=== PATIENT | male | born 1950 | race Caucasian/White ===

== ENCOUNTER → 2019-11-28 09:09 | Outpatient (CLI) | payer MEDICARE, OTHER, SELFPAY ==
--- NOTE | ~2019-11-28 | MR_ITS ---
EXAMINATION: MR lumbar spine wo [facility] EXAM DATE: 11/28/2019 09:45 INDICATION: Low back pain for several months. TECHNIQUE: Multi-sequential, multiplanar MR images of the lumbar spine were obtained without contrast . Sagittal T1, T2, T2 fat saturation images. Axial T2 weighted images. There is no prior study for comparison. FINDINGS: Mild to moderate lumbar levoscoliosis. There is 5 mm retrolisthesis L1 on L2, 4 mm retrolis thesis L2 on L3 and 3 mm retrolisthesis L3 on L4. There is moderate loss of the L1-2 and L2-3 disc he ights. Mild disc disease at L3-4 and L4-5. There are scattered focal signal abnormalities consistent with hemangiomata, otherwise without focal suspicious marrow signal abnormalities. Paraspinal soft ti ssue is unremarkable. Surgical changes from prior laminectomies L1-L4. Level by level evaluation: T12-L1: There is a mild to moderate diffuse disc bulge. Facet arthropathy: Mild. Neural foraminal stenosis: Mild left. Central canal stenosis: Mild. L1-L2: There is a moderate diffuse disc bulge. Facet arthropathy: Moderate. Neural foraminal stenosis: Moderate bilateral. Central canal stenosis: Mild to moderate. L2-L3: There is a large diffuse disc bulge. Facet arthropathy: Moderate. Neural foraminal stenosis: Moderate to severe right, moderate left. Central canal stenosis: Mild to moderate. L3-L4: There is a moderate diffuse disc bulge. Facet arthropathy: Moderate to severe. Neural foraminal stenosis: Moderate to severe left, moderate right. Central canal stenosis: Moderate to severe. L4-L5: There is a moderate diffuse disc bulge. Facet arthropathy: Moderate to severe. Neural foraminal stenosis: Moderate to severe left, moderate right. Central canal stenosis: Moderate to severe. L5-S1: There is a mild diffuse disc bulge. Facet arthropathy: Mild to moderate. Neural foraminal stenosis: Mild bilateral. Central canal stenosis: Mild. IMPRESSION: 1. L1-L4 laminectomies. 2. Moderate to severe central canal stenosis L3-4 and L4-5. 3. Upper lumbar retrolistheses. Reviewed, dictated and finalized at location A.
== END ==
PROVIDERS: PCP Family Medicine; Visit Provider Physician Assistant
DX: M54.5 Low back pain (principal); Z98.1 Arthrodesis status; M48.061 Spinal stenosis, lumbar region without neurogenic claudication; M43.16 Spondylolisthesis, lumbar region
CPT/HCPCS: 72148

== ENCOUNTER → 2019-12-18 08:42 | Outpatient (CLI) | payer MEDICARE, OTHER, SELFPAY ==
--- NOTE | ~2019-12-18 | CT_ITS ---
EXAMINATION: CT lumbar spine wo [facility] EXAM DATE: 12/18/2019 09:01 INDICATION: Low back pain. TECHNIQUE: Spiral CT of the lumbar spine was performed without contrast. Axial, coronal and sagittal images were reviewed. The dose-length product (DLP) for this examination was 896.23 mGy-cm. The e xposure was tailored according to patient size (auto mA exposure control), and iterative reconstructi on (ASIR) was used as additional dose reduction technique. Correlation is made to MR lumbar spine 10/30. FINDINGS: No endplate erosive change. Mild to moderate lumbar levoscoliosis. There is 4 mm retrolist hesis L1 on L2, 3 mm retrolisthesis L2 on L3 and 3 mm retrolisthesis L3 on L4. There is moderate to s evere loss of L2-3 disc height, moderate at L1-2. Mild lower lumbar disc disease. There are no osteob lastic or osteolytic lesions identified. . Paraspinal soft tissue is unremarkable. Surgical changes from prior laminectomies L1-L4. No sacral insufficiency fracture. Level by level evaluation: T12-L1: There is a mild to moderate diffuse disc bulge. Facet arthropathy: Mild. Neural foraminal stenosis: Mild left. Central canal stenosis: Mild. L1-L2: There is a moderate diffuse disc bulge. Facet arthropathy: Moderate. Neural foraminal stenosis: Moderate bilateral. Central canal stenosis: Mild to moderate. L2-L3: There is a large diffuse disc bulge. Facet arthropathy: Moderate. Neural foraminal stenosis: Moderate to severe right, moderate left. Central canal stenosis: Mild to moderate. L3-L4: There is a moderate to large diffuse disc bulge. Facet arthropathy: Severe left, moderate to severe right. Neural foraminal stenosis: Moderate to severe bilateral. Central canal stenosis: Moderate to severe. Some midline posterior decompression L4-L5: There is a moderate diffuse disc bulge. Facet arthropathy: Moderate to severe. Neural foraminal stenosis: Moderate to severe bilateral. Central canal stenosis: Moderate to severe. The midline posterior decompression. L5-S1: There is a mild diffuse disc bulge. Facet arthropathy: Moderate bilateral. Neural foraminal stenosis: Mild to moderate bilateral. Central canal stenosis: Mild to moderate. IMPRESSION: 1. L1-L4 laminectomies. 2. Moderate to severe central canal stenosis L3-4 and L4-5. 3. Mild to moderate levoscoliosis. Reviewed, dictated and finalized at location B.
== END ==
PROVIDERS: Visit Provider Orthopaedic Surgery
DX: M54.5 Low back pain (principal)
CPT/HCPCS: 72131

== ENCOUNTER 2020-07-09 07:59 | Outpatient (CLI) | payer MEDICARE, SELFPAY | END 2020-07-09 08:00 | disposition home or self-care (01) | LOC: ANHCOVIDVC 07:59 | PROVIDERS: PCP Family Medicine | DX: Z23 Encounter for immunization (principal) | CPT/HCPCS: 0001A; 91300 ==

== ENCOUNTER 2020-07-30 08:03 | Outpatient (CLI) | payer MEDICARE, SELFPAY | END 2020-07-30 08:04 | disposition home or self-care (01) | LOC: ANHCOVIDVC 08:03 | PROVIDERS: PCP Family Medicine | DX: Z23 Encounter for immunization (principal) | CPT/HCPCS: 0002A; 91300 ==

== ENCOUNTER → 2020-12-28 09:19 | Outpatient (CLI) | payer MEDICARE, SELFPAY ==
--- NOTE | ~2020-12-28 | MR_ITS ---
EXAMINATION: MR lumbar spine wo [facility] EXAM DATE: 12/28/2020 10:09 INDICATION: Lumbago lumbago , low back pain. TECHNIQUE: Multi-sequential, multiplanar MR images of the lumbar spine were obtained without contrast . Sagittal T1, T2, T2 fat saturation images. Axial T2 weighted images. Comparison is made to prior examination from 11/28/2019. FINDINGS: Mild to moderate lumbar levoscoliosis. There is 6 mm retrolisthesis L1 on L2, 4 mm retrolis thesis L2 on L3 and 3 mm retrolisthesis L3 on L4. There is moderate loss of the L1-2 and L2-3 disc he ights. Mild disc disease at L3-4 and L4-5. There are scattered focal signal abnormalities consistent with hemangiomata, otherwise without focal suspicious marrow signal abnormalities. Paraspinal soft ti ssue is unremarkable. Surgical changes from prior laminectomies L1-L4. Level by level evaluation: T12-L1: There is a mild to moderate diffuse disc bulge. Facet arthropathy: Mild. Neural foraminal stenosis: Mild left. Central canal stenosis: Mild. L1-L2: There is a moderate to large diffuse disc bulge. Facet arthropathy: Moderate. Neural foraminal stenosis: Moderate right, mild to moderate left. Central canal stenosis: Mild to moderate. L2-L3: There is a large diffuse disc bulge. Facet arthropathy: Moderate. Neural foraminal stenosis: Moderate to severe right, moderate left. Central canal stenosis: Mild to moderate. L3-L4: There is a moderate diffuse disc bulge. Facet arthropathy: Severe, ligamentum flavum hypertrophy on the left and synovial cyst projecting int ernally on the right. Neural foraminal stenosis: Moderate to severe bilateral. Central canal stenosis: Moderate. L4-L5: There is a moderate diffuse disc bulge. Facet arthropathy: Moderate to severe. Neural foraminal stenosis: Severe left, moderate to severe right. Central canal stenosis: Moderate to severe. L5-S1: There is a mild diffuse disc bulge. Facet arthropathy: Mild to moderate. Neural foraminal stenosis: Mild to moderate bilateral. Central canal stenosis: Mild. Difficult to appreciate significant interval change compared to one year ago. IMPRESSION: 1. Mild to moderate lumbar levoscoliosis. 2. Moderate to severe spondylosis as detailed above. Reviewed, dictated and finalized at location B.
== END ==
PROVIDERS: PCP Family Medicine; Visit Provider Nurse Practitioner Family
DX: M47.817 Spondylosis without myelopathy or radiculopathy, lumbosacral region (principal); M48.07 Spinal stenosis, lumbosacral region
CPT/HCPCS: 72148

== ENCOUNTER → 2021-04-26 09:09 | Outpatient (CLI) | payer MEDICARE, SELFPAY ==
--- NOTE | ~2021-04-26 | MR_ITS ---
EXAMINATION: MR thoracic spine wo con EXAM DATE: 04/26/2021 10:02 INDICATION: Back pain, thoracic back pain. TECHNIQUE: Multi-sequential, multiplanar MR images of the thoracic spine were obtained without contra st. Sagittal T1, T2, T2 fat saturation, axial T2 weighted images reviewed. There is no prior study for comparison. FINDINGS: There is mild lower thoracic disc disease with mild disc bulges, mild central canal stenosi s at T9-10 and T11-12. There is thoracic facet arthropathy, mild to moderate at the upper thoracic le vels, mild at the midthoracic levels and moderate at the lower thoracic levels from T8/9 down. There are several small vertebral body hemangiomata. Probable T9 small atypical hemangioma. Paraspinal soft tissue is unremarkable. The vertebral bodies are aligned in the AP dimension. T9-10 has moderate rig ht neural foraminal stenosis and mild to moderate left neural foraminal stenosis. Mild bilateral neur al foraminal stenosis at T10-11 and mild to moderate at T11-12. The spinal cord signal intensity and intrinsic morphology is normal. Thoracic aortic tortuosity. IMPRESSION: Mild to moderate thoracic spondylosis. Reviewed, dictated and finalized at location A. [employer]
== END ==
PROVIDERS: Visit Provider Nurse Practitioner Family
DX: M47.896 Other spondylosis, lumbar region (principal)
CPT/HCPCS: 72146

== ENCOUNTER 2021-07-28 08:33 | Outpatient (CLI) | payer MEDICARE, SELFPAY ==
--- NOTE | 2021-07-28 | ECG_ITS ---
Measurements Intervals [place] Rate: 70 P: 76 LA: 160 QRS: -44 QRSD: 114 T: 0 QT: 377 QTc: 407 Interpretive Statements SINUS RHYTHM WITH SINUS ARRHYTHMIA LEFT AXIS DEVIATION [QRS AXIS < -30] INCOMPLETE RIGHT BUNDLE BRANCH BLOCK [90+ ms QRS DURATION, TERMINAL R IN V1/V2, 40+ ms S IN I/aVL/V4/V5/V6] BORDERLINE ECG NO PREVIOUS ECG AVAILABLE FOR COMPARISON Electronically Signed On 07-28-2021 15:42:19 CDT by Amilcar Stevens M.D.
[2021-07-28 08:58] LABS: Basophils Percent Auto 0.5 % (0.2-1.2); Eosinophils Absolute Auto 0.1 K/mm3 (0-0.3); Eosinophils Percent Auto 1.1 % (0-4.4); Hematocrit 40.9 % (42.0-52.0); Hemoglobin 13.8 g/dL (14.0-18.0); Immature Granulocyte Absolute 0.01 K/mm3 (0.00-0.031); Immature Granulocyte Percent A 0.2 % (0-0.5); Lymphocytes Absolute Auto 3.02 K/mm3 (0.9-3.2); Lymphocytes Percent Auto 46.9 % (18.3-44.2); Mean Corpuscular HGB Conc 33.7 g/dl (32-36); Mean Corpuscular Hemoglobin 31.4 pg (26-34); Mean Corpuscular Volume 93.2 fl (80-100); Mean Platelet Volume 9.6 fl (7.4-10.4); Monocytes Absolute Auto 0.8 K/mm3 (0.1-0.6); Monocytes Percent Auto 12.1 % (2.6-8.5); Neutrophils Absolute Auto 2.5 K/mm3 (1.3-6.7); Neutrophils Percent Auto 39.2 % (45.5-73.1); Platelet Count Result 215 k/mm3 (150-375); Red Blood Count 4.39 M/mm3 (4.6-6.20); Red Cell Distribution Width 12.7 % (11.5-14.5); White Blood Count 6.4 K/mm3 (4.5-10.0)
[2021-07-28 09:10] LABS: Anion Gap 8 mmol/L (8-16); Blood Urea Nitrogen 20 mg/dL (9-20); CRP < 0.5 mg/dL (<1.0); Calcium 9.3 mg/dL (8.4-10.2); Carbon Dioxide 25 mmol/L (22-30); Chloride 105 mmol/L (98-107); Estimated Glomerular Filt Rate > 60; Glucose 105 mg/dL (65-110); Potassium 4.4 mmol/L (3.4-5.0); Sodium 138 mmol/L (137-145)
[2021-07-28 09:49] LABS: Appearance Urine Clear (Clear); Bilirubin Urine Negative (Negative); Blood Urine Negative (Negative); Glucose Urine UA Negative (Negative); Ketones Urine Negative (Negative); Leukocyte Esterase Ur Negative LEU/UL (Negative); Nitrate Urine Negative (Negative); Protein Urine Negative (Negative); Urobilinogen Urine 0.2 mg/dL (<2.0)
[2021-07-28 09:54] LABS: Add Urine Microscopic? NO; Color Urine Light Yellow (Yellow)
[2021-07-28 09:58] LABS: Erythrocyte Sedimentation Rate 48 mm/hr (0-20)
== END 2021-07-28 08:34 | disposition home or self-care (01) ==
PROVIDERS: Visit Provider Nurse Practitioner Family
DX: Z01.810 Encounter for preprocedural cardiovascular examination (principal); I45.10 Unspecified right bundle-branch block
CPT/HCPCS: 36415; 80048; 81003; 85025; 85652; 86140; 93005

== ENCOUNTER 2022-01-05 10:06 | Outpatient (CLI) | payer MEDICARE, SELFPAY ==
--- NOTE | ~2022-01-05 | US_ITS ---
EXAMINATION: US soft tissue UE LT DATE: 01/05/2022 11:01 INDICATION: Spontaneously draining cutaneous abscess of the proximal left forearm TECHNIQUE: Multiple grayscale and Doppler ultrasound images of the region of concern at the posterola teral proximal left forearm were obtained. COMPARISON: None FINDINGS: There is focal mild subcutaneous edema surrounding an approximately 2 cm diameter and up to 4 mm thic k region of decreased echogenicity in the subcutaneous fat which could represent either phlegmonous c hange or a decompressed abscess cavity with small hypoechoic tract extending to the skin surface. No discrete loculated fluid collection to suggest a residual drainable abscess. No evident transgression of the superficial muscular fascia with normal appearance to the underlying musculature. IMPRESSION: 1. Small region of phlegmonous change versus a decompressed abscess cavity at the region of concern a s detailed above. No residual drainable abscess or involvement of the underlying musculature. Reviewed, dictated and finalized at location A. IMPRESSION: 1. Small region of phlegmonous change versus a decompressed abscess cavity at t he region of concern as detailed above. No residual drainable abscess or involv ement of the underlying musculature.
== END 2022-01-05 10:07 | disposition home or self-care (01) ==
PROVIDERS: PCP Family Medicine; Visit Provider Physician Assistant
DX: L02.414 Cutaneous abscess of left upper limb (principal); L72.9 Follicular cyst of the skin and subcutaneous tissue, unspecified
CPT/HCPCS: 76882

== ENCOUNTER 2022-02-01 12:08 | Day surgery (SDC) | payer MEDICARE, SELFPAY ==
[2022-01-16 14:38] VITALS: BMI 27.4
--- NOTE | 2022-01-31 18:00 | PM.HPGS ---
History of Present Illness History of Present Illness Consent: Risks, benefits, and alternatives have been discussed and questions answered. Patient agrees to proceed with procedure. Chief complaint: Positive Cologuard Narrative: Jarad Herring is a 71 year old male referred for colon cancer screening. He had performed a Cologuard test which was positive Review of Systems Review of Systems: All systems reviewed & are unremarkable except as noted in HPI and below PMFSH Past Medical History Medical History Chronic low back pain COPD (chronic obstructive pulmonary disease) HLD (hyperlipidemia) HTN (hypertension) Surgical History Surgical History S/P laminectomy Family History Family History Father Family history of pancreatic cancer Social History Social History Smoking packs per day: 3 Smoking cigarettes per day: 60.0 Years smoked: 40 Smoking pack-years: 120.00 Smoking status: Former smoker Tobacco type: cigarettes Second hand tobacco smoke exposure: Yes Smoking end date: 04/30/04 Alcohol intake: never Substance use: never Substance use type: does not use Living arrangements: with family Gender identity (if verbalized by the patient): Male Sexual Orientation (if Verbalized by the Patient): Straight or Heterosexual Spiritual care concerns: No Meds Home Medications and Allergies Home Medications Medication Instructions Recorded Confirmed Type hydrocodone 5 mg-acetaminophen 325 1 tablet PO Q6H PRN pain #40 tabs 12/02/20 02/01/22 Rx mg tablet albuterol sulfate 90 mcg/actuation 1 - 2 inh inhalation Q4-6H PRN 06/09/21 01/16/22 Rx aerosol inhaler (Ventolin HFA) shortness of breath or wheezing #8.5 grams amlodipine 5 mg tablet (Norvasc) 5 mg PO DAILY #90 tabs 09/20/21 02/01/22 Rx atorvastatin 10 mg tablet 10 mg PO DAILY #30 tabs 09/20/21 02/01/22 Rx sodium sul 1.479 gram-potas ch See Rx Instructions PO PER PKG DIR 10/17/21 02/01/22 Rx 0.188 gram-magnes sul 0.225 gram #24 tabs tablet (Sutab) budesonide-formoterol HFA 160 See Rx Instructions .Route 01/11/22 02/01/22 Rx mcg-4.5 mcg/actuation aerosol .COMPLEX #10.2 grams inhaler diclofenac sodium 75 mg 75 mg PO BID #180 tabs 01/16/22 02/01/22 Rx tablet,delayed release multivitamin with minerals-folic 1 tablet PO DAILY 01/16/22 02/01/22 History acid 0.4 mg tablet Allergies Allergy/AdvReac Type Severity Reaction Status Date / Time Penicillins Allergy Unknown Rash Verified 02/01/22 12:56 Exam Const: General: alert Orientation/consciousness: patient oriented x3 Resp: Auscultation: clear to auscultation bilaterally Cardio: Rhythm: regular rhythm GI: GI Palp: Yes Soft to palpation and No Tenderness to palpation present (GI) Neuro: General: patient oriented x3 Assessment and Plan Assessment and plan (1) Colon cancer screening: Code(s): Z12.11 - Encounter for screening for malignant neoplasm of colon Status: Acute Assessment and Plan: Colonoscopy with possible biopsy or polypectomy or cautery or injection of substances.
[2022-02-01 12:45] VITALS: BP 139/96; PULSE 80; RESP 16; TEMP 36.7; O2SAT 98
[2022-02-01] MEDS: LACTATED RINGERS 1,000 ML 150 ML IV CONT (13:05)
--- NOTE | 2022-02-01 13:23 | WPDANESEPPF ---
Anes - Initial Pre Proc Eval Procedure: Operation Date: 02/01/22 13:45 Proposed Procedures p Diagnostic Colonoscopy - Dmitriy Tovar MD Date/Time: 02/01/22 13:23 Surgeon: Dmitriy Tovar MD Pre Op Diagnosis: Positive Cologuard Patient Data Age: 71 Gender: M Height: 1.73 m Weight: 82 kg Last Vital Signs Temp 36.7 C 02/01/22 12:45 Pulse 80 02/01/22 12:45 Resp 16 02/01/22 12:45 BP 139/96 H 02/01/22 12:45 Pulse Ox 98 02/01/22 12:45 O2 Del Method Room Air 02/01/22 12:45 Allergies Allergy/AdvReac Type Severity Reaction Status Date / Time Penicillins Allergy Unknown Rash Verified 02/01/22 12:56 Home Medications Medication Instructions Recorded Confirmed Type hydrocodone 5 mg-acetaminophen 325 1 tablet PO Q6H PRN pain #40 tabs 12/02/20 02/01/22 Rx mg tablet albuterol sulfate 90 mcg/actuation 1 - 2 inh inhalation Q4-6H PRN 06/09/21 01/16/22 Rx aerosol inhaler (Ventolin HFA) shortness of breath or wheezing #8.5 grams amlodipine 5 mg tablet (Norvasc) 5 mg PO DAILY #90 tabs 09/20/21 02/01/22 Rx atorvastatin 10 mg tablet 10 mg PO DAILY #30 tabs 09/20/21 02/01/22 Rx sodium sul 1.479 gram-potas ch See Rx Instructions PO PER PKG DIR 10/17/21 02/01/22 Rx 0.188 gram-magnes sul 0.225 gram #24 tabs tablet (Sutab) budesonide-formoterol HFA 160 See Rx Instructions .Route 01/11/22 02/01/22 Rx mcg-4.5 mcg/actuation aerosol .COMPLEX #10.2 grams inhaler diclofenac sodium 75 mg 75 mg PO BID #180 tabs 01/16/22 02/01/22 Rx tablet,delayed release multivitamin with minerals-folic 1 tablet PO DAILY 01/16/22 02/01/22 History acid 0.4 mg tablet Patient hx anesthesia problems: none Family hx anesthesia problems: none Results Review: All pre-operative results and documents have been reviewed as part of the pre-operative evaluation. [facility] Past Medical History Medical History Chronic low back pain COPD (chronic obstructive pulmonary disease) HLD (hyperlipidemia) HTN (hypertension) Surgical History Surgical History S/P laminectomy Family History Family History Father Family history of pancreatic cancer Social History Social History Smoking packs per day: 3 Smoking cigarettes per day: 60.0 Years smoked: 40 Smoking pack-years: 120.00 Smoking status: Former smoker Tobacco type: cigarettes Second hand tobacco smoke exposure: Yes Smoking end date: 04/30/04 Alcohol intake: never Substance use: never Substance use type: does not use Living arrangements: with family Gender identity (if verbalized by the patient): Male Sexual Orientation (if Verbalized by the Patient): Straight or Heterosexual Spiritual care concerns: No Anes - Eval Final PreProcedure Day of Procedure 02/01/22 13:23 Patient weight: overweight Heart: regular rate and rhythm Lungs: decreased breath sounds Airway: Mallampati scale class II Neurological: alert and oriented Last oral intake: >/= 8 hours ASA classification: III Emergent: no Anesthetic plan: proceed Anesthesia type and monitoring: general GIVS and standard monitoring Results Review: All pre-operative results and documents have been reviewed as part of the pre-operative evaluation. Informed Consent: The patient's anesthetic plan and its attendant risks and benefits were discussed with the patient/family/POA. Questions were solicited and answers provided to the satisfaction of the patient/family/POA.
[2022-02-01 14:00] VITALS: BP 91/72; PULSE 71; RESP 15; O2SAT 95
[2022-02-01 14:10] VITALS: BP 126/68; PULSE 70; RESP 15; O2SAT 98
[2022-02-01 14:20] VITALS: BP 126/76; PULSE 68; RESP 15; O2SAT 98
--- NOTE | 2022-02-01 14:20 | WPDANESPN ---
Anes - Prog Note Post-Op Date/Time: 02/01/22 14:20 Cardiovascular status: normal Respiratory status: normal Airway patency: baseline Mental status: baseline Post-Op hydration status: normal Vital Signs: Last Vital Signs Temp 36.7 C 02/01/22 12:45 Pulse 70 02/01/22 14:10 Resp 15 02/01/22 14:10 BP 126/68 02/01/22 14:10 Pulse Ox 98 02/01/22 14:10 O2 Del Method Room Air 02/01/22 14:10 Pain Score (VAS): 0 I/O: Intake & Output 01/31/22 02/01/22 02/01/22 23:59 07:59 15:59 Intake Total 600 Balance 600 Patient Feedback: Patient satisfied with anesthetic care.
== END 2022-02-01 14:25 | disposition home or self-care (01) ==
PROVIDERS: PCP Family Medicine; Visit Provider Internal Medicine Gastroenterology
PROC: 0DJD8ZZ Inspection of Lower Intestinal Tract, Via Natural or Artificial Opening Endoscopic (ICD-10-PCS; CPT 45378; principal; 2022-02-01 13:45)
DX: Z12.11 Encounter for screening for malignant neoplasm of colon (principal)
CPT/HCPCS: 45378

== ENCOUNTER 2022-04-15 12:23 | Outpatient (NON) | payer MEDICARE, SELFPAY ==
[2022-04-14 12:44] LABS: Appearance Synovial Fluid Cloudy (Clear); Color Synovial Fluid Yellow (Colorless); Source Synovial Fluid Synovial fluid
[2022-04-14 12:49] LABS: Lymphocytes Synovial Fluid 3 %; Neutrophils Synovial Fluid 97 % (0-25); Nucleated Cell Synovial Fluid 8734 /uL (0-200); RBC Synovial Fluid 7905 /uL (0-0)
== END 2022-04-15 12:24 | disposition home or self-care (01) ==
LOC: ANHLAB 12:28
PROVIDERS: PCP Family Medicine; Visit Provider Orthopaedic Surgery
DX: M71.122 Other infective bursitis, left elbow (principal)
CPT/HCPCS: 87070; 87075; 87147; 87181; 87186; 87205; 89051

== ENCOUNTER 2022-09-14 07:53 | Outpatient (CLI) | payer MEDICARE, SELFPAY ==
--- NOTE | 2022-09-14 08:08 | ECG_ITS ---
Measurements Intervals [place] Rate: 79 P: 87 IN: 155 QRS: -36 QRSD: 113 T: 15 QT: 353 QTc: 407 Interpretive Statements SINUS RHYTHM LEFT AXIS DEVIATION INCOMPLETE RIGHT BUNDLE BRANCH BLOCK BASELINE ARTIFACT- I, II, III, AVR, AVL, AVF, V1-V3 BORDERLINE ECG COMPARED TO ECG 07/28/2021 09:24:02 NO SIGNIFICANT CHANGES Electronically Signed On 09-14-2022 9:04:13 CDT by Julio Herrera D.O.
== END 2022-09-14 07:54 | disposition home or self-care (01) ==
LOC: ANHSURGERY 07:57
PROVIDERS: PCP Family Medicine; Visit Provider Orthopaedic Surgery
DX: I10 Essential (primary) hypertension (principal); Z01.818 Encounter for other preprocedural examination; I45.10 Unspecified right bundle-branch block
CPT/HCPCS: 93005

== ENCOUNTER 2022-09-19 01:28 | Day surgery (SDC) | payer MEDICARE, SELFPAY ==
[2022-09-12 08:28] VITALS: BMI 29.8
--- NOTE | 2022-09-12 08:46 | PC.NURSE ---
Report to the Outpatient Waiting Room, entrance under the green pavilion located off [facility], at time __8:30AM on date _09/19/22 . Planned Procedure Time: __10:30AM . Time changes happen often and if your time is changed the preop area will call you the afternoon before. - You and your visitor will be asked to self-screen and do not enter if you have any COVID symptoms. - A mask is optional within the hospital at this time. Patients may have clear liquids (water, carbonated beverages, clear teas, apple juice) until 3 hours prior to surgery with a maximum of 20 ounces. - No food from midnight until time of surgery Take the following medications with a SIP of water the morning of surgery: __SYMBICORT INHALER, XTAMPZA, ALBUTEROL INHALER NEEDED_ DO NOT STOP ANY OF YOUR OTHER PRESCRIPTION MEDICATIONS PRIOR TO SURGERY ?EXCEPT THE FOLLOWING Medications to discontinue per physician ___HOLD ALL VITAMINS/SUPPLEMENTS 3 DAYS PRE-OP Date to take last dose 09/15/22 Please no make-up, nail persian, hairspray, perfume, deodorant, or body powder the day of surgery. No jewelry (including any body piercings) or valuables the day of surgery, leave them at home. Please take a shower or bath the night before, or the morning of, surgery with an antibacterial soap. Wear comfortable, loose fitting clothing. Children are encouraged to wear pajamas. - Jewelry must be removed prior to entering the operating room. Rings and piercings that are not removed may be cut off. - The hospital will not accept responsibility for valuables. - Please leave all valuables, including medications, at home the day of surgery. If you are going home after surgery, a licensed four horse hitch driver must drive you home. - NO public transportation without another adult if you receive anesthesia. - We recommend that an adult stay with you for 24 hours following discharge. - We also recommend that you do not drive, make important decision, drink alcoholic beverages, or take any drugs that were not prescribed by your health care provider for at least 24 hours after your discharge time. Follow any additional instructions given to you from your surgeon. If you or anyone in your household have experienced Covid symptoms in the past week, please notify your surgeon or the nurse liaison at the phone number below for possible testing. Telephone instructions given to _PATIENT'S , GABY,__and asked if any additional questions and then verbalized understanding. Patient advised to call surgeon office or pre surgery nurse liaison [phone] if any additional questions.
[2022-09-19] VITALS (8 sets, daily range): BP systolic 124–136; BP diastolic 70–86; PULSE 82–95; RESP 13–19; TEMP 36.6–36.8; O2SAT 93–100
[2022-09-19] MEDS: ACETAMINOPHEN 500 MG TABLET 1000 MG PO (08:34)
--- NOTE | 2022-09-19 08:49 | WPDANESEPPF ---
Anes - Initial Pre Proc Eval Procedure: Operation Date: 09/19/22 10:30 Proposed Procedures p Left Elbow Olecranon Bursectomy - Eric Otto MD Date/Time: 09/19/22 08:49 Surgeon: Eric Otto MD Pre Op Diagnosis: Lt Elbow Olecranon Bursitis Patient Data Age: 72 Gender: M Height: 1.73 m Weight: 85.2 kg Allergies Allergy/AdvReac Type Severity Reaction Status Date / Time Penicillins Allergy Unknown Rash Verified 09/19/22 08:29 Home Medications Medication Instructions Recorded Confirmed Type albuterol sulfate 90 mcg/actuation 1 - 2 inh inhalation Q4-6H PRN 06/09/21 09/12/22 Rx aerosol inhaler (Ventolin HFA) shortness of breath or wheezing #8.5 grams multivitamin with minerals-folic 1 tablet PO DAILY 01/16/22 09/12/22 History acid 0.4 mg tablet budesonide-formoterol HFA 160 See Rx Instructions .Route 03/13/22 09/12/22 Rx mcg-4.5 mcg/actuation aerosol .COMPLEX #30.6 grams inhaler lubiprostone 24 mcg capsule 24 mcg PO BID 03/14/22 09/12/22 History atorvastatin 10 mg tablet 10 mg PO DAILY #30 tabs 03/27/22 09/12/22 Rx diclofenac sodium 75 mg 75 mg PO BID #180 tabs 07/19/22 09/12/22 Rx tablet,delayed release oxycodone myristate 13.5 mg 13.5 mg PO BID 07/26/22 09/12/22 History capsule sprinkle extend release 12hr(DON'T CRUSH) (Xtampza ER) oxycodone 5 mg tablet 5 mg PO Q8H PRN Pain 09/06/22 09/12/22 History amlodipine 5 mg tablet (Norvasc) 5 mg PO HS 09/12/22 09/12/22 History Patient hx anesthesia problems: none Family hx anesthesia problems: none Results Review: All pre-operative results and documents have been reviewed as part of the pre-operative evaluation. [facility] Past Medical History Medical History (Updated 09/19/22 @ 08:50 by Migue Benedict DO) Cellulitis of right elbow Chronic low back pain Chronic, continuous use of opioids oxy 5 mg for 10 years COPD (chronic obstructive pulmonary disease) HLD (hyperlipidemia) HTN (hypertension) Spinal cord stimulator status Surgical History Surgical History H/O elbow surgery 2012 Left elbow 2016 Right elbow H/O left knee surgery 2000 & 2007 History of left knee replacement 2015 History of tooth extraction S/P laminectomy 2018 & 2020 Family History Family History Father Family history of pancreatic cancer Social History Social History Smoking packs per day: 2 Smoking cigarettes per day: 40.0 Years smoked: 30 Smoking pack-years: 60.00 Smoking status: Former smoker Tobacco type: cigarettes Second hand tobacco smoke exposure: Yes Smoking end date: 10/29/03 Alcohol intake: never Substance use: never Substance use type: does not use Lack of Transportation: No Lack of Food: Never True Current Housing: I Have Housing Concerned About Future Housing: No Difficulty Paying Gas/Electric Bills: No Difficulty Paying for Meds: No Currently Unemployed: No Education: Trade/Vocational Certificate Difficulty w/ Childcare or Family Care: No Living arrangements: with family Additional living arrangements comments: Occupation/Education: retired Gender identity (if verbalized by the patient): Male Sexual Orientation (if Verbalized by the Patient): Straight or Heterosexual Spiritual care concerns: No Anes - Eval Final PreProcedure Day of Procedure 09/19/22 08:49 Patient weight: overweight Heart: regular rate and rhythm Lungs: clear to auscultation Airway: Mallampati scale class III Neurological: alert and oriented Last oral intake: >/= 8 hours ASA classification: III Emergent: no Anesthetic plan: proceed Anesthesia type and monitoring: general LMA and standard monitoring Results Review: All pre-operative results and documents have been reviewed as part of the pre-operative evaluation
[2022-09-19] MEDS: LACTATED RINGERS 1,000 ML 30 ML IV CONT (08:52)
[2022-09-19] MEDS: KETOROLAC 15 MG/ML VIAL (*BKC) IV PUSH (09:29)
--- NOTE | 2022-09-19 09:41 | WPDHPUPDATE1 ---
History and Physical Update Update Date/Time: 09/19/22 09:41 History and Physical has been reviewed, including an updated exam of the patient. There are NO changes in the patient's condition. Risks, benefits, and alternatives have been discussed and questions answered. Patient agrees to proceed with procedure.
[2022-09-19] MEDS: ceFAZolin 2 GM/D5W 50 ML 2 GM/50 ML BAG IVPB (10:21)
[2022-09-19] MEDS: BUPivacaine HCL 0.5% 10 ML AMP 30 ML INFILTRATE (10:46)
--- NOTE | 2022-09-19 11:54 | W.PM.PROC2 ---
Procedure Note - Detailed Date of Procedure 09/19/22 Pre-op Diagnosis Lt Elbow Olecranon Bursitis Post-op Diagnosis Same Procedure Performed Excision left olecranon bursa Surgeon Eric Otto MD Anesthesia General Description of Procedure Preoperative antibiotics given. The arm was prepped and draped in the usual sterile fashion with a well-padded tourniquet. A longitudinal incision was created slightly ulnar over the elbow in order to include the small sinus tract. Bursa sac itself was quite thickened and large with extensive scar tissue. Prior surgical dissection appeared evident. Care was taken to protect the skin. Tourniquet was released and meticulous hemostasis obtained. No gross purulence noted. The wound was closed with mattress nylon suture. Not too tight to allow for some drainage. Bulky dressing with Xeroform was applied. Posterior splint at 90?. Patient extubated and brought to the recovery room in stable condition. Estimated Blood Loss 10 Drains No Packing No Pathology None sent Complications No immediate complications Condition Stable Disposition PACU [facility] Billing Surgery - Charge Forward: Surgery Billing
== END 2022-09-19 13:22 | disposition home or self-care (01) ==
PROVIDERS: PCP Family Medicine; Visit Provider Orthopaedic Surgery
PROC: (CPT 24110; principal; 2022-09-19 10:30)
DX: M70.22 Olecranon bursitis, left elbow (principal); E78.5 Hyperlipidemia, unspecified; I10 Essential (primary) hypertension; J44.9 Chronic obstructive pulmonary disease, unspecified; Z87.891 Personal history of nicotine dependence
CPT/HCPCS: 24105; 93005; A9270; J0690; J1100; J1885; J2250; J2405; J2704; J3010; J7120

== ENCOUNTER → 2023-03-02 15:53 | Outpatient (CLI) | payer MEDICARE, SELFPAY ==
--- NOTE | ~2023-03-02 | XR_ITS ---
XR sacroiliac joints min 3V 03/02/2023 16:24 Indication: Low back pain. Spondylosis. Procedure: 3 views sacroiliac joints Comparison: 03/02/2023 Findings: There is bilateral symmetric degenerative changes of the sacroiliac joints. No fracture or traumatic malalignment. No erosive changes. No ankylosis. Sacral foramen are symmetric. Impression: 1: Mild symmetric degenerative changes of the sacroiliac joints. Reviewed, dictated and finalized at location A. Impression: 1: Mild symmetric degenerative changes of the sacroiliac joints.
--- NOTE | ~2023-03-02 | XR_ITS ---
XR hip BI wo pelvis 03/02/2023 16:24 Indication: Pelvic pain Procedure: 2 views each hip Comparison: No prior studies for comparison. Findings: There is moderate bilateral osteoarthritis of the hips. There is osteitis pubis. Sacral for amen are symmetric. No acute fracture or traumatic malalignment. Lower lumbar spondylosis partially v isualized. Impression: 1: Moderate osteoarthritis of the hips. Reviewed, dictated and finalized at location A. Impression: 1: Moderate osteoarthritis of the hips.
--- NOTE | ~2023-03-02 | XR_ITS ---
XR lumbar spine min 4V 03/02/2023 16:24 Indication: Low back pain. Spondylosis. Procedure: 5 views lumbar spine Comparison: 06/06/2012 Findings: Mild levoscoliosis. There is disc narrowing and endplate degenerative change at all lumbar levels. There is advanced multilevel facet hypertrophy. Pedicles intact. Spinal stimulator leads over lie the thoracic spine, incompletely visualized. No acute fracture or traumatic malalignment. Impression: 1: Progression of severe lumbar spondylosis with levoscoliosis. Reviewed, dictated and finalized at location A. Impression: 1: Progression of severe lumbar spondylosis with levoscoliosis.
== END ==
PROVIDERS: PCP Neurological Surgery; Visit Provider Neurological Surgery
DX: M47.816 Spondylosis without myelopathy or radiculopathy, lumbar region (principal)
CPT/HCPCS: 72110; 72202; 73521

== ENCOUNTER → 2023-04-06 09:37 | Outpatient (CLI) | payer MEDICARE, SELFPAY ==
--- NOTE | ~2023-04-06 | XR_ITS ---
EXAMINATION: XR lumbar spine min 4V DATE: 04/06/2023 10:47 INDICATION: Other specified postprocedural status. TECHNIQUE: 5 views of lumbar spine including standing and flexion and extension views were obtained. COMPARISON: Lumbar spine radiographs 03/02/2023, MRI 12/28/2020 FINDINGS: There is 24 degrees levoscoliosis of lumbar spine. S1 is a transitional segment. There is 3 mm retrolisthesis of L1 on L2, L2 on L3, and L3 on L4. There is mild chronic anterior wedging of L1 and L2 vertebral bodies. There is moderately decreased disc height at L1-L2 and severely decreased di sc height at L2-L3 and L3-L4. There is multilevel severe facet joint osteoarthritis. Epidural electro darryn are noted. IMPRESSION: 1. Severe lumbar spondylosis. 2. Lumbar levoscoliosis. Reviewed, dictated and finalized at location E. SH VISITOR
== END ==
PROVIDERS: PCP Neurological Surgery; Visit Provider Neurological Surgery
DX: Z98.890 Other specified postprocedural states (principal); M47.896 Other spondylosis, lumbar region
CPT/HCPCS: 72110

== ENCOUNTER 2023-10-02 07:52 | Outpatient (CLI) | payer MEDICARE, SELFPAY | END 2023-10-02 07:53 | disposition home or self-care (01) | LOC: ANHAUDASC 07:53 | PROVIDERS: PCP Family Medicine; Visit Provider Family Medicine | DX: H91.90 Unspecified hearing loss, unspecified ear (principal) | CPT/HCPCS: 92557; 92567 ==

== ENCOUNTER 2023-11-05 15:00 | Outpatient (RCR) | payer MEDICARE, SELFPAY | END 2024-01-21 23:59 | disposition home or self-care (01) | LOC: ANHAUDASC 15:00 | PROVIDERS: PCP Family Medicine; Visit Provider Family Medicine | DX: Z46.1 Encounter for fitting and adjustment of hearing aid (principal) | CPT/HCPCS: 92567 ==

== ENCOUNTER 2023-12-07 13:30 | Outpatient (NON) | payer MEDICARE, SELFPAY ==
[2023-12-07 14:30] LABS: Appearance Synovial Fluid Hazy (Clear); Color Synovial Fluid Yellow (Colorless); Source Synovial Fluid Synovial fluid
[2023-12-07 14:31] LABS: Lymphocytes Synovial Fluid 86 %; Monocytes Synovial Fluid 11 %; Neutrophils Synovial Fluid 3 % (0-25); Nucleated Cell Synovial Fluid 2061 /uL (0-200); RBC Synovial Fluid 3000 /uL (0-0)
== END 2023-12-07 13:31 | disposition home or self-care (01) ==
PROVIDERS: PCP Family Medicine; Visit Provider Orthopaedic Surgery
DX: M71.122 Other infective bursitis, left elbow (principal)
CPT/HCPCS: 87070; 87075; 87205; 89051

== ENCOUNTER 2024-01-12 15:08 | Emergency (ER) | payer MEDICARE, SELFPAY ==
[2024-01-12 15:19] VITALS: BP 116/88; PULSE 76; RESP 16; TEMP 36.7; O2SAT 100
--- NOTE | 2024-01-12 17:12 | ED.SKABFB ---
HPI - Skin/Abscess/Foreign Bdy General Chief complaint: Extremity Problem,Nontraumatic Stated complaint: SPOT ON L ELBOW Time Seen by Provider: 01/12/24 15:44 Source: patient, RN notes reviewed and old records reviewed Mode of arrival: ambulatory Limitations: no limitations History of Present Illness HPI narrative: Patient's history of chronic cellulitis of left elbow area and history of left olecranon bursitis. He was seen by his PCP yesterday and was placed on a course of Bactrim for cellulitis to the area. Yesterday he did not have an abscess or area that could be cultured. He has a follow-up appointment scheduled for 1 week and has also been referred to Dermatology. So far he has had 1 dose of Bactrim prior to coming in today. Patient states that since his visit with PCP yesterday he has developed a pustular area in the middle of the cellulitis. He is wondering if we could culture this area and send it to the lab. Related Data Home Medications Medication Instructions Recorded Confirmed multivitamin with minerals-folic 1 tablet PO DAILY 01/16/22 01/11/24 acid 0.4 mg tablet lubiprostone 24 mcg capsule 24 mcg PO BID 03/14/22 01/11/24 naloxone 4 mg/actuation nasal 1 spray intranasal Q2-3M PRN 03/01/23 01/11/24 spray (Narcan) buprenorphine HCl 300 mcg buccal 300 mcg buccal Q12H 11/30/23 01/11/24 film ([place]uca) Allergies Allergy/AdvReac Type Severity Reaction Status Date / Time Penicillins Allergy Unknown Rash Verified 01/11/24 09:24 Review of Systems Review of Systems: CONSTITUTIONAL: Denies body aches, fever, chills, or sweats. EYES: Denies visual changes, redness, or discharge. ENT: Denies rhinorrhea, congestion, sore throat, or otalgia. CARDIOVASCULAR: Denies chest pain, palpitations, or edema. RESPIRATORY: Denies cough or dyspnea. GASTROINTESTINAL: Denies abdominal pain, nausea, vomiting, or diarrhea. GENITOURINARY: Denies dysuria or hematuria. SKIN: + redness and pustule to left lateral forearm MUSCULOSKELETAL: Denies back pain, joint pain, or myalgia. NEUROLOGIC: Denies headache, numbness, tingling, or weakness. PSYCH: Denies depression or anxiety. PMFSH Past Medical History Medical History Cellulitis of right elbow Chronic low back pain Chronic, continuous use of opioids oxy 5 mg for 10 years COPD (chronic obstructive pulmonary disease) HLD (hyperlipidemia) HTN (hypertension) Spinal cord stimulator status Surgical History Surgical History H/O elbow surgery 2011 Left elbow 2016 Right elbow H/O left knee surgery 2000 & 2007 History of left knee replacement 2014 History of tooth extraction S/P laminectomy 2018 & 2020 Family History Family History Father Family history of pancreatic cancer Social History Social History Smoking packs per day: 2 Smoking cigarettes per day: 40.0 Years smoked: 30 Smoking pack-years: 60.00 Smoking status: Former smoker Tobacco type: cigarettes Second hand tobacco smoke exposure: Yes Smoking end date: 10/29/03 Alcohol intake: never Substance use: never Substance use type: does not use Do You Feel Safe in your Home?: Yes Lack of Transportation: No Lack of Food: Never True Current Housing: I Have Housing Concerned About Future Housing: No Difficulty Paying Gas/Electric Bills: No Difficulty Paying for Meds: No Currently Unemployed: No Education: Trade/Vocational Certificate Difficulty w/ Childcare or Family Care: No Living arrangements: with family Additional living arrangements comments: Occupation/Education: retired Gender identity (if verbalized by the patient): Male Sexual Orientation (if Verbalized by the Patient): Straight or Heterosexual Sp
== END 2024-01-12 16:03 | disposition home or self-care (01) ==
PROVIDERS: Emergency Provider Nurse Practitioner; PCP Family Medicine
DX: L02.414 Cutaneous abscess of left upper limb (principal); Z87.891 Personal history of nicotine dependence; J44.9 Chronic obstructive pulmonary disease, unspecified; E78.5 Hyperlipidemia, unspecified; I10 Essential (primary) hypertension; Z96.82 Presence of neurostimulator
CPT/HCPCS: 10060; 87070; 87075; 87081; 87181; 87205; 99213; G0463

== ENCOUNTER 2024-11-07 09:07 | Emergency (ER) | payer MEDICARE, SELFPAY ==
[2024-11-07] VITALS (11 sets, daily range): BP systolic 104–140; BP diastolic 56–86; PULSE 76–84; RESP 15–23; TEMP 36.6; O2SAT 95–97
--- NOTE | ~2024-11-07 | XR_ITS ---
EXAM/PROCEDURE: XR chest 1V portable - 11/07/2024 10:50 CDT HISTORY: 74 years old Male with intermittent dizzy TECHNIQUE: Two view(s) of the chest. COMPARISON: None available. FINDINGS: LUNGS/ PLEURA: No focal consolidation. No appreciable pneumothorax or large pleural effusion. HEART/ MEDIASTINUM: Heart appears normal in size. BONES: Degenerative changes. OTHER: Visualized upper abdomen is unremarkable. Partially visualized spinal stimulator leads and bat gregory. IMPRESSION: No acute process. Reviewed, dictated and finalized at location A. IMPRESSION: No acute process.
--- OUTSIDE RECORDS SUMMARY | 2024-11-07 09:09 | XMS_ITS | Continuity of Care Document ---
Author Organization [facility] Address [address] [place] [address] [facility] [address] [place] [address] Phone Care Team Providers Care Highballer Name Role Phone HaimWillian grant Unavailable Unavailable Procedures Procedure Date Eye Exam & Treatment Advance Directives Directive Yes / No Effective Date File Name No Information Encounters Encounter Description Practice Location Reason(s) For Visit Diagnoses Date Provider Providers Copied on Encounter [facility], [id number] [place] [address] [address], [place], [place], [id number], [place] tel:[phone] [facility] ([facility]3] No Information [address] Kaylee Willian. [address] [facility] [address], [place], [address], [place]. tel:[phone] Family History Family Member Type Diagnosis Age At Onset No Information Payers Payer name Insurance type Covered libertarian ID Authoriza tion(s) No Information Social History Type Description Quantity Date Captured Comments Sex Male Smoking Status No Information Chief Complaint And Reason For Visit No Information Reason For Referral Reason For Referral No Information History Of Present Illness Encounter Date Complaint History Of Prese nt Illness No Information Functional Status Date Functional Assessmen t No Information Instructions Date Instruction Additional Infor mation No Information Assessments Type Assessment Date No Information Patient Care Teams Name Effective Dates (start - stop) Status Members No Information
--- OUTSIDE RECORDS SUMMARY | 2024-11-07 09:09 | XMS_ITS | Clinical Summary ---
Author Organization [facility] Address [facility] [place] [address] Care Team Providers Care Supervisor Harvesting Name Role Phone Unavailable Primary Care Provider Unavailabl e Social History Tobacco Use Types Packs/Day Years Used Date Smoking Tobacco: Never Assessed Sex and Gender Information Value Date Recorded Sex Assigned at Not on file Legal Sex Male 7:56 PM CDT Gender Identity Not on file Sexual Orientation Not on file Plan of Treatment Health Maintenance Due Date Last Done Comments Colorectal Cancer Screening Colonoscopy (10 Years) 1950 Hepatitis C 1967 DTaP, Tdap and Td Vaccines ( 1 - Tdap) 1968 Pneumococcal Vaccine: 50+ Ye ars (1 of 1 - PCV) 1999 Zoster Vaccines (1 of 2) 1999 COVID-19 Vaccine ( - 2023-2 5 season) 2023 RSV Immunization or 60+ Years (1 - 1-dose 75+ series) 2024 Meningococcal B Vaccine Aged Out No l onger eligible based on patient's age to complete this topic Meningococcal Vaccine Aged Out No gretel jv eligible based on patient's age to complete this topic RSV Immunizations Under 20 Months Aged Out No longer eligible based on patient's age to complete this topic
--- NOTE | 2024-11-07 09:16 | ECG_ITS ---
Test Date: 2024-11-07 09:19:23 Measurements Intervals [place] Rate: 77 P: 62 CO: 157 QRS: -45 QRSD: 99 T: -5 QT: 374 QTc: 423 Interpretive Statements SINUS RHYTHM WITH SINUS ARRHYTHMIA PATTERN CONSISTENT WITH PULMONARY DISEASE INCOMPLETE RIGHT BUNDLE BRANCH BLOCK LEFT ANTERIOR FASCICULAR BLOCK Electronically Signed On 11-07-2024 11:07:36 CDT by George Coker D.O
--- OUTSIDE RECORDS SUMMARY | 2024-11-07 09:29 | XMS_ITS | Continuity of Care Document ---
Author Organization [facility] Address [address] [place] [address] [address] [facility] [address] [place] [address] Phone Care Team Providers Care Shoe Repairer Name Role Phone HaimWillian grant Unavailable Unavailable Procedures Procedure Date Eye Exam & Treatment Advance Directives Directive Yes / No Effective Date File Name No Information Encounters Encounter Description Practice Location Reason(s) For Visit Diagnoses Date Provider Providers Copied on Encounter [facility], [id number] [place] [address] [address], [place], [place], [id number], [place] tel:[phone] [facility] No Information 4[address] Kaylee Willian. [address] [facility] [address], [place], [address], [place]. tel:[phone] Family History Family Member Type Diagnosis Age At Onset No Information Payers Payer name Insurance type Covered democrat ID Authoriza tion(s) No Information Social History [...]
--- NOTE | 2024-11-07 09:48 | ED.ARRPALP ---
HPI - Arrhythmia/Palpitations General Chief Complaint: Arrhythmia/Palpitations <Neetu Yu PA-C - Last Filed: 11/07/24 12:28> Stated Complaint: int dizziness since yesterday <Neetu Yu PA-C - Last Filed: 11/07/24 12:28> Time Seen by Provider: 11/07/24 09:20 <Neetu Yu PA-C - Last Filed: 11/07/24 12:28> History of Present Illness HPI narrative: 74-year-old male with history of hyperlipidemia, COPD, hypertension presents to the emergency department with at bedside for intermittent dizziness for 5-6 weeks. Patient describes his dizziness as ?uneasiness? and lightheadedness. He cannot identify any aggravating or alleviating factors other than his symptoms seemed to resolve after he takes a nap. He states that the frequency of dizziness is increased over the past few days which prompted him to come to the ED today. He states he was having some lightheadedness yesterday, took his blood pressure and was told by his blood pressure monitor that there was an abnormal heartbeat. He denies history of arrhythmias. He states this morning after getting coffee he began to feel lightheaded again but his symptoms resolved on his way to the emergency department. He is currently asymptomatic. He denies any associated chest pain. He resources chronic shortness of breath from his COPD that is unchanged from baseline. He is also having mild nasal congestion. Denies lower extremity edema or history of cardiac disease. Denies melena and hematochezia. <Neetu Yu PA-C - Last Filed: 11/07/24 12:28> Related Data Home Medications: Home Medications ?Medication ?Instructions ?Recorded ?Confirmed ?Last Taken ?Type multivitamin with minerals-folic 1 tablet PO DAILY 01/16/22 11/05/24 1 Day Ago History acid 0.4 mg tablet ~01/31/22 lubiprostone 24 mcg capsule 24 mcg PO BID 03/14/22 11/05/24 Unknown History naloxone 4 mg/actuation nasal 1 spray intranasal Q2-3M PRN 03/01/23 11/05/24 Unknown History spray (Narcan) buprenorphine HCl 300 mcg buccal 300 mcg buccal Q12H 11/30/23 11/05/24 Unknown History film (Belbuca) <Neetu Yu PA-C - Last Filed: 11/07/24 12:28> Allergies/Adverse Reactions: Allergies Allergy/AdvReac Type Severity Reaction Status Date / Time Penicillins Allergy Unknown Rash Verified 11/07/24 09:16 <Neetu Yu PA-C - Last Filed: 11/07/24 12:28> Review of Systems Review of Systems: All systems reviewed & are unremarkable except as noted in HPI and below <Neetu Yu PA-C - Last Filed: 11/07/24 12:28> [facility] Past Medical History Medical History: Medical History Spinal cord stimulator status Chronic, continuous use of opioids oxy 5 mg for 10 years Cellulitis of right elbow HLD (hyperlipidemia) Chronic low back pain COPD (chronic obstructive pulmonary disease) HTN (hypertension) <Neetu Yu PA-C - Last Filed: 11/07/24 12:28> Surgical History Surgical History: Surgical History History of tooth extraction History of left knee replacement 2014 H/O elbow surgery 2011 Left elbow 2016 Right elbow H/O left knee surgery 2000 & 2007 S/P laminectomy 2018 & 2020 <Neetu Yu PA-C - Last Filed: 11/07/24 12:28> Family History Family History: Family History Father Family history of pancreatic cancer <Neetu Yu PA-C - Last Filed: 11/07/24 12:28> Social History Social History: Social History Smoking packs per day: 2 Smoking cigarettes per day: 40.0 Years smoked: 30 Smoking pack-years: 60.00 Smoking status: Former smoker Tobacco type: cigarettes Second hand tobacco smoke exposure: Yes Smoking end date: 10/29/03 Alcohol intake: never Substance use: never Substance use type: does not use Do You Feel Safe in your Home?: Yes Lack of Transportation: No Lack of Food: Never True Current Housing: I Have Housing Concerned About Future Housing: No Difficulty Paying Gas/Electric Bills: No Difficulty Paying for Meds: No Currently Unemployed: No Education: Trade/Vocational Certificate Difficulty w/ Childcare or Family Care: No Living arrangements: with family Additional living arrangements comments: Occupation/Education: retired Gender identity (if verbalized by the patient): Male Sexual Orientation (if Verbalized by the Patient): Straight or Heterosexual Spiritual care concerns: No <Neetu Yu PA-C - Last Filed: 11/07/24 12:28> Exam Narrative: GENERAL: Well-appearing, well-nourished, and in no acute distress. HEAD: Normocephalic, atraumatic. EYES: PERRLA and EOMI. ENT: Nares clear, no rhinorrhea or epistaxis. Mucous membranes moist. Bilateral TMs are keith and nonbulging with normal canals NECK: Supple. CHEST: Clear to auscultation. No respiratory distress. HEART: Regular rate and rhythm. Frequent PVCs. No murmur heard. Normal peripheral pulses. ABDOMEN: Soft, nontender, nondistended, normal active bowel sounds. EXTREMITIES: Normal range of motion. No edema. SKIN: Warm, dry, no rash. NEURO: No focal deficits. Alert and oriented x4. Cranial nerves 2-12 intact. Strength 5/5 in BUE and BLE. Sensation intact throughout. Normal [id number]. No pronator drift. <Neetu Yu PA-C - Last Filed: 11/07/24 12:28> Course ANCHOR TACK PULLER/PA Physician Supervision This visit was performed by both a physician and an APC. I performed all aspects of the MDM as documented. <Albert Vance MD - Last Filed: 11/07/24 18:39> Vital Signs Vital signs: Vital Signs Temperature 97.8 F 11/07/24 09:13 Pulse Rate 84 11/07/24 09:13 Respiratory Rate 15 11/07/24 09:13 Blood Pressure 140/85 11/07/24 09:13 Pulse Oximetry 97 11/07/24 09:13 Oxygen Delivery Room Air 11/07/24 09:13 Temperature 97.8 F 11/07/24 09:13 Pulse Rate 81 11/07/24 12:01 Respiratory Rate 15 11/07/24 12:01 Blood Pressure 113/78 11/07/24 12:01 Pulse Oximetry 96 11/07/24 12:01 Oxygen Delivery Room Air 11/07/24 09:13 <Neetu Yu PA-C - Last Filed: 11/07/24 12:28> Vital Signs Temperature 97.8 F 11/07/24 09:13 Pulse Rate 84 11/07/24 09:13 Respiratory Rate 15 11/07/24 09:13 Blood Pressure 140/85 11/07/24 09:13 Pulse Oximetry 97 11/07/24 09:13 Oxygen Delivery Room Air 11/07/24 09:13 Temperature 97.8 F 11/07/24 09:13 Pulse Rate 81 11/07/24 12:01 Respiratory Rate 15 11/07/24 12:01 Blood Pressure 113/78 11/07/24 12:01 Pulse Oximetry 96 11/07/24 12:01 Oxygen Delivery Room Air 11/07/24 09:13 <Albert Vance MD - Last Filed: 11/07/24 18:39> MDM - Arrhythmia/Palpitations MDM Narrative Medical decision making narrative: 74-year-old male with history of hyperlipidemia, hypertension, COPD presents to the emergency department for intermittent dizziness for the past several weeks. Patient is asymptomatic at the time of my evaluation. Triage vitals are stable. Patient is afebrile and nontoxic appearing and resting comfortably in exam bed. He is neurovascularly intact. Patient in sinus rhythm with PVCs on quality assurance monitor final on my evaluation EKG shows sinus rhythm with sinus arrhythmia with a rate of 77 ppm, normal AR interval, normal QRS duration, normal QTC, no significant ST elevations or depressions. Troponin is undetectable. CBC without leukocytosis. Hemoglobin is 11.9, most recent hemoglobin on 02/22/2024 was 13.7. Patient denies signs or symptoms of GI bleed. Chemistries are unremarkable with no electrolyte derangements. Magnesium is normal. BNP is normal when age adjusted, patient is no evidence of volume overload. TSH is within normal limits. UA with trace leuk esterase and trace ketones, otherwise no white blood cells or bacteria concerning for UTI. Viral swabs negative. Chest x-ray shows no acute cardiopulmonary findings. Patient and at bedside updated on results. Patient remains asymptomatic. He is ambulatory without ataxia or dizziness. Feel patient is safe to be discharged home with close outpatient follow-up. I discussed today's workup in patient's presentation with patient's Dr. Lala's PA, Ellie, who plans to follow the patient closely at the beginning of next week and agrees to set up outpatient Holter monitor. I encouraged increased fluid intake and discussed strict ED return precautions. The patient and at bedside are agreeable with the plan verbalized understanding. Discharged in stable condition. <Neetu Yu PA-C - Last Filed: 11/07/24 12:28> Lab Data Result diagrams: 11/07/24 10:19 11/07/24 10:19 <Neetu Yu PA-C - Last Filed: 11/07/24 12:28> Labs: Lab Results 11/07/24 11/07/24 11/07/24 Range/Units 10:19 10:34 10:39 WBC 5.7 (4.5-10.0) K/mm3 RBC 3.96 L (4.6-6.20) M/mm3 Hgb 11.9 L (14.0-18.0) g/dL Hct 36.4 L (42.0-52.0) % MCV 91.9 (80-100) fl MCH 30.1 (26-34) pg MCHC 32.7 (32-36) g/dl RDW 13.5 (11.5-14.5) % Plt Count 170 (150-375) k/mm3 MPV 9.5 (7.4-10.4) fl Immature Gran % (Auto) 0.3 (0-0.5) % Neut % (Auto) 62.5 (45.5-73.1) % Lymph % (Auto) 23.3 (18.3-44.2) % [place] % (Auto) 13.5 H (2.6-8.5) % Eos % (Auto) 0.2 (0-4.4) % Baso % (Auto) 0.2 (0.2-1.2) % Lymph # (Auto) 1.33 (0.9-3.2) K/mm3 [place] # (Auto) 0.8 H (0.1-0.6) K/mm3 Eos # (Auto) 0.0 (0-0.3) K/mm3 Baso # (Auto) 0.0 (0.0-0.1) K/mm3 Abs Immat Gran (auto) 0.02 (0.00-0.031) K/mm3 Absolute Neuts (auto) 3.6 (1.3-6.7) K/mm3 Absolute Nucleated RBC 0.000 (0.0-0.012) K/mm3 Nucleated RBC % 0.0 (0.0-0.2) % PT 14.6 (11.1-14.7) Seconds INR 1.2 APTT 29.6 (22.3-36.8) Seconds Sodium 138 (137-145) mmol/L Potassium 4.6 (3.4-5.0) mmol/L Chloride 104 (98-107) mmol/L Carbon Dioxide 23 (22-30) mmol/L Anion Gap 11 (4-12) mmol/L BUN 19 (9-20) mg/dL Creatinine 1.11 (0.7-1.3) mg/dL Estim Creat Clear Calc 49 ml/min Estimated GFR > 60 (59 - ) Glucose 101 (65-110) mg/dL Calcium 9.4 (8.4-10.2) mg/dL Magnesium 2.1 (1.6-2.3) mg/dL Total Bilirubin 0.7 (0.2-1.3) mg/dL AST 34 (17-59) U/L ALT 22 (6-50) U/L Alkaline Phosphatase 80 (38-126) U/L Troponin I < 0.012 (0.000-0.034) ng/mL NT-Pro-B Natriuret Pep 391 H (19.9-100) pg/mL Total Protein 8.3 H (6.3-8.2) g/dL Albumin 4.6 (3.5-5.1) g/dL TSH (Reflex) 0.850 (0.465-4.68) uIU/mL Urine Color Yellow (Yellow) Urine Appearance Clear (Clear) Urine pH 6.5 (5.0-9.0) Ur Specific [place] 1.020 (1.001-1.035) Urine Protein Negative (Negative) mg/dL Urine Glucose (UA) Negative (Negative) mg/dL Urine Ketones Trace H (Negative) mg/dL Ur Blood (Man) Negative (Negative) Urine Nitrate Negative (Negative) Urine Bilirubin Negative (Negative) Urine Urobilinogen 1.0 (<2.0) mg/dL Leukocyte Esterase Rfl Trace H (Negative) LAURA/UL Urine RBC 0-2 (0-2) /hpf Urine WBC 0-5 (0-3) /hpf Ur Squamous Epith Cells None seen (Few) /hpf Urine Bacteria None seen /hpf Urine Casts 3-5 Influenza A (RT-PCR) Negative (Negative) Influenza B (RT-PCR) Negative (Negative) RSV (RT-PCR) Negative (Negative) SARS-CoV-2 RNA (RT-PCR) Negative (Negative) <Neetu Yu PA-C - Last Filed: 11/07/24 12:28> Lab Results 11/07/24 11/07/24 11/07/24 Range/Units 10:19 10:34 10:39 WBC 5.7 (4.5-10.0) K/mm3 RBC 3.96 L (4.6-6.20) M/mm3 Hgb 11.9 L (14.0-18.0) g/dL Hct 36.4 L (42.0-52.0) % MCV 91.9 (80-100) fl MCH 30.1 (26-34) pg MCHC 32.7 (32-36) g/dl RDW 13.5 (11.5-14.5) % Plt Count 170 (150-375) k/mm3 MPV 9.5 (7.4-10.4) fl Immature Gran % (Auto) 0.3 (0-0.5) % Neut % (Auto) 62.5 (45.5-73.1) % Lymph % (Auto) 23.3 (18.3-44.2) % [place] % (Auto) 13.5 H (2.6-8.5) % Eos % (Auto) 0.2 (0-4.4) % Baso % (Auto) 0.2 (0.2-1.2) % Lymph # (Auto) 1.33 (0.9-3.2) K/mm3 [place] # (Auto) 0.8 H (0.1-0.6) K/mm3 Eos # (Auto) 0.0 (0-0.3) K/mm3 Baso # (Auto) 0.0 (0.0-0.1) K/mm3 Abs Immat Gran (auto) 0.02 (0.00-0.031) K/mm3 Absolute Neuts (auto) 3.6 (1.3-6.7) K/mm3 Absolute Nucleated RBC 0.000 (0.0-0.012) K/mm3 Nucleated RBC % 0.0 (0.0-0.2) % PT 14.6 (11.1-14.7) Seconds INR 1.2 APTT 29.6 (22.3-36.8) Seconds Sodium 138 (137-145) mmol/L Potassium 4.6 (3.4-5.0) mmol/L Chloride 104 (98-107) mmol/L Carbon Dioxide 23 (22-30) mmol/L Anion Gap 11 (4-12) mmol/L BUN 19 (9-20) mg/dL Creatinine 1.11 (0.7-1.3) mg/dL Estim Creat Clear Calc 49 ml/min Estimated GFR > 60 (59 - ) Glucose 101 (65-110) mg/dL Calcium 9.4 (8.4-10.2) mg/dL Magnesium 2.1 (1.6-2.3) mg/dL Total Bilirubin 0.7 (0.2-1.3) mg/dL AST 34 (17-59) U/L ALT 22 (6-50) U/L Alkaline Phosphatase 80 (38-126) U/L Troponin I < 0.012 (0.000-0.034) ng/mL NT-Pro-B Natriuret Pep 391 H (19.9-100) pg/mL Total Protein 8.3 H (6.3-8.2) g/dL Albumin 4.6 (3.5-5.1) g/dL TSH (Reflex) 0.850 (0.465-4.68) uIU/mL Urine Color Yellow (Yellow) Urine Appearance Clear (Clear) Urine pH 6.5 (5.0-9.0) Ur Specific [place] 1.020 (1.001-1.035) Urine Protein Negative (Negative) mg/dL Urine Glucose (UA) Negative (Negative) mg/dL Urine Ketones Trace H (Negative) mg/dL Ur Blood (Man) Negative (Negative) Urine Nitrate Negative (Negative) Urine Bilirubin Negative (Negative) Urine Urobilinogen 1.0 (<2.0) mg/dL Leukocyte Esterase Rfl Trace H (Negative) LAURA/UL Urine RBC 0-2 (0-2) /hpf Urine WBC 0-5 (0-3) /hpf Ur Squamous Epith Cells None seen (Few) /hpf Urine Bacteria None seen /hpf Urine Casts 3-5 Influenza A (RT-PCR) Negative (Negative) Influenza B (RT-PCR) Negative (Negative) RSV (RT-PCR) Negative (Negative) SARS-CoV-2 RNA (RT-PCR) Negative (Negative) <Albert Vance MD - Last Filed: 11/07/24 18:39> Discharge Plan Discharge Clinical Impression: Intermittent lightheadedness, PVC's (premature ventricular contractions), Anemia, normocytic normochromic <Neetu Yu PA-C - Last Filed: 11/07/24 12:28> Patient Disposition: Home <Neetu Yu PA-C - Last Filed: 11/07/24 12:28> Condition: Stable <Neetu Yu PA-C - Last Filed: 11/07/24 12:28> Instructions: Antibiotic Form <Neetu Yu PA-C - Last Filed: 11/07/24 12:28> Additional Instructions: You were evaluated in the emergency department for intermittent lightheadedness and concerns for abnormal heart rhythm. You did have frequent premature ventricular contractions as discussed in the emergency department. Your hemoglobin was also found to be slightly low at 11.9. Please follow-up closely with her primary care provider regarding these. You will need an outpatient Holter monitor as discussed. Make sure to drink plenty of fluids. Return to the emergency department if you develop worsening dizziness, loss of consciousness, chest pain or shortness of breath, or other concerning symptoms. <Neetu Yu PA-C - Last Filed: 11/07/24 12:28> Patient Language: Norwegian <Neetu Yu PA-C - Last Filed: 11/07/24 12:28> Prescriptions: No Action buprenorphine HCl [Belbuca] 300 mcg film 300 mcg buccal Q12H lubiprostone 24 mcg capsule 24 mcg PO BID naloxone [Narcan] 4 mg/actuation spray,non-aerosol 1 spray intranasal Q2-3M PRN Rx Instructions: spray 1 dose into ONE nostril; alternate nostrils w each dose until help arrives sulfamethoxazole-trimethoprim [Bactrim DS] 800-160 mg tablet 2 tablet PO Q12H 7 Days Qty: 28 0RF albuterol sulfate [Ventolin HFA] 90 mcg/actuation HFA aerosol inhaler 1 - 2 inh INHALATION Q4-6H PRN (Reason: shortness of breath or wheezing) Qty: 8.5 2RF Breztri Aerosphere 160-9-4.8 mcg/actuation HFA aerosol inhaler 2 inh inhalation BID Qty: 32.1 2RF amlodipine [Norvasc] 5 mg tablet 5 mg PO HS Qty: 90 3RF atorvastatin 10 mg tablet 10 mg PO DAILY Qty: 90 1RF diclofenac sodium 75 mg tablet,delayed release (DR/EC) 75 mg PO BID Qty: 180 2RF Rx Instructions: Take with food. multivit with min-folic acid 0.4 mg Tablet 1 tablet PO DAILY <Neetu Yu PA-C - Last Filed: 11/07/24 12:28> Follow-up/Referrals: Niko Lala MD [Primary Care Provider] - <Neetu Yu PA-C - Last Filed: 11/07/24 12:28>
[2024-11-07 10:33] LABS: Hematocrit 36.4 % (42.0-52.0); Hemoglobin 11.9 g/dL (14.0-18.0); Immature Granulocyte Percent A 0.3 % (0-0.5); Lymphocytes Absolute Auto 1.33 K/mm3 (0.9-3.2); Mean Corpuscular HGB Conc 32.7 g/dl (32-36); Mean Corpuscular Hemoglobin 30.1 pg (26-34); Mean Corpuscular Volume 91.9 fl (80-100); Nucleated Red Blood Cells Absolute Auto 0.000 K/mm3 (0.0-0.012); Nucleated Red Blood Cells Perc 0.0 % (0.0-0.2); Platelet Count Result 170 k/mm3 (150-375); Red Blood Count 3.96 M/mm3 (4.6-6.20); White Blood Count 5.7 K/mm3 (4.5-10.0)
[2024-11-07 10:46] LABS: INR 1.2; Partial Thromboplastin Time 29.6 Seconds (22.3-36.8); Prothrombin Time 14.6 Seconds (11.1-14.7)
[2024-11-07 10:49] LABS: Add Urine Microscopic? YES; Appearance Urine Clear (Clear); Glucose Urine UA Negative (Negative); Leukocyte Esterase Ur Trace LEU/UL (Negative); Nitrate Urine Negative (Negative); Specific Grav Ur 1.020 (1.001-1.035)
[2024-11-07] MEDS: SODIUM CHLORIDE 0.9% IV 1,000 ML 999 ML IV CONT (10:55)
[2024-11-07 10:58] LABS: Alanine Aminotransferase 22 U/L (6-50); Albumin Level 4.6 g/dL (3.5-5.1); Alkaline Phosphatase 80 U/L (38-126); Anion Gap 11 mmol/L (4-12); Aspartate Amino Transferase 34 U/L (17-59); Bilirubin,Total 0.7 mg/dL (0.2-1.3); Blood Urea Nitrogen 19 mg/dL (9-20); Calcium 9.4 mg/dL (8.4-10.2); Carbon Dioxide 23 mmol/L (22-30); Chloride 104 mmol/L (98-107); Estimated CRCL calculation 49 ml/min; Estimated Glomerular Filt Rate > 60; Glucose 101 mg/dL (65-110); Magnesium 2.1 mg/dL (1.6-2.3); Potassium 4.6 mmol/L (3.4-5.0); Sodium 138 mmol/L (137-145); Total Protein 8.3 g/dL (6.3-8.2)
[2024-11-07 11:06] LABS: NT Pro B Type Natriuretic Pept 391 pg/mL (19.9-100); Troponin I < 0.012 ng/mL (0.000-0.034)
[2024-11-07 11:18] LABS: Thyroid Stimulating Hormone Reflex 0.850 uIU/mL (0.465-4.68)
[2024-11-07 11:27] LABS: Influenza A QL RT-PCR Negative (Negative); Influenza B QL RT-PCR Negative (Negative); RSV RNA, RT-PCR Negative (Negative); SARS-CoV-2 RNA PCR Negative (Negative)
== END 2024-11-07 12:35 | disposition home or self-care (01) ==
PROVIDERS: Emergency Provider Physician Assistant; PCP Family Medicine
DX: R42 Dizziness and giddiness (principal); I49.3 Ventricular premature depolarization; D64.9 Anemia, unspecified; R06.02 Shortness of breath; Z20.822 Contact with and (suspected) exposure to COVID-19; I10 Essential (primary) hypertension; J44.9 Chronic obstructive pulmonary disease, unspecified; E78.5 Hyperlipidemia, unspecified; Z96.652 Presence of left artificial knee joint; Z96.82 Presence of neurostimulator; Z87.891 Personal history of nicotine dependence; Z79.899 Other long term (current) drug therapy
CPT/HCPCS: 36415; 71045; 80053; 81001; 83735; 83880; 84443; 84484; 85025; 85610; 85730; 87637; 93005; 96360; 99284; J7030

== ENCOUNTER 2024-11-11 11:34 | Outpatient (CLI) | payer MEDICARE, SELFPAY ==
--- OUTSIDE RECORDS SUMMARY | 2024-11-11 11:46 | XMS_ITS | Continuity of Care Document ---
Author Organization [facility] Address [address] [place] [address] utive [facility] [address] [place] [address] Phone Care Team Providers Care Waste Examiner Name Role Phone HaimWillian grant Unavailable Unavailable Procedures Procedure Date Eye Exam & Treatment Advance Directives Directive Yes / No Effective Date File Name No Information Encounters Encounter Description Practice Location Reason(s) For Visit Diagnoses Date Provider Providers Copied on Encounter [facility], [id number] [place] [address] [address], [place], [place], [id number], [place] tel:[phone] [facility] No Information [phone] Kaylee Willian. [address] [facility] [address] [place], [address], [place]. tel:[phone] Family History Family Member Type Diagnosis Age At Onset No Information Payers Payer name Insurance type Covered green party ID Authoriza tion(s) No Information Social History [...]
--- OUTSIDE RECORDS SUMMARY | 2024-11-11 11:46 | XMS_ITS | Clinical Summary ---
Author Organization [facility] Address [facility] [place] [address] Care Team Providers Care Asphalt Paving Machine Operator Name Role Phone Unavailable Primary Care Provider [...]
[2024-11-11 12:10] LABS: Hematocrit 34.9 % (42.0-52.0); Hemoglobin 11.5 g/dL (14.0-18.0); Mean Corpuscular HGB Conc 33.0 g/dl (32-36); Mean Corpuscular Hemoglobin 30.3 pg (26-34); Mean Corpuscular Volume 92.1 fl (80-100); Platelet Count Result 151 k/mm3 (150-375); Red Blood Count 3.79 M/mm3 (4.6-6.20); White Blood Count 4.7 K/mm3 (4.5-10.0)
[2024-11-11 12:36] LABS: Alanine Aminotransferase 23 U/L (6-50); Aspartate Amino Transferase 33 U/L (17-59); Bilirubin,Total 0.4 mg/dL (0.2-1.3); Blood Urea Nitrogen 19 mg/dL (9-20); Calcium 9.8 mg/dL (8.4-10.2); Carbon Dioxide 20 mmol/L (22-30); Estimated Glomerular Filt Rate > 60; Potassium 4.8 mmol/L (3.4-5.0); Sodium 138 mmol/L (137-145)
[2024-11-11 13:12] LABS: Albumin Level 4.6 g/dL (3.5-5.1); Alkaline Phosphatase 67 U/L (38-126); Anion Gap 12 mmol/L (4-12); Chloride 106 mmol/L (98-107); Glucose 103 mg/dL (65-110); Total Protein 8.0 g/dL (6.3-8.2)
== END 2024-11-11 11:35 | disposition home or self-care (01) ==
LOC: ANHLAB 11:35
PROVIDERS: PCP Family Medicine; Visit Provider Physician Assistant Medical
DX: D64.9 Anemia, unspecified (principal); R42 Dizziness and giddiness
CPT/HCPCS: 36415; 80053; 85027

== ENCOUNTER 2024-11-20 10:30 | Outpatient (CLI) | payer MEDICARE, SELFPAY ==
--- OUTSIDE RECORDS SUMMARY | 2024-11-20 10:36 | XMS_ITS | Clinical Summary ---
Author Organization [facility] Address [facility] [place] [address] Care Team Providers Care Patternmaker Plastics Name Role Phone Unavailable Primary Care Provider [...]
--- NOTE | 2024-12-05 12:22 | WPDHOLTEREM ---
Holter/Event Monitor Holter/Event Monitor Date of procedure: 11/20/24 Holter/Event Procedure: 3-7 Day Holter Monitor Indications: Dizziness Conclusion: 1. 7 days holter monitor on 11/20/24. 2. Predominant rhythm is sinus rhythm. HR range 59-171 bpm; average HR 79 bpm. 3. There are rare premature supraventricular complexes, rare supraventricular couplets, and rare supraventricular triplets. There are 5 episodes of supraventricular tachycardia with fastest at 171 bpm and longest lasting 11 beats. 4. There are intermittent premature ventricular complexes with burden of 7.6%, rare ventricular couplets, longest ventricular bigeminy is 5 minutes and 29 seconds, and longest ventricular trigeminy is 1 minute and 13 seconds. There are 5 episodes of ventricular tachycardia with fastest at 171 bpm and longest lasting 6 beats. 5. No significant pauses greater than 3 seconds. 6. No symptoms available for correlation.
== END 2024-11-20 10:31 | disposition home or self-care (01) ==
PROVIDERS: PCP Family Medicine; Visit Provider Physician Assistant Medical
DX: R42 Dizziness and giddiness (principal); I49.3 Ventricular premature depolarization
CPT/HCPCS: 93242

== ENCOUNTER 2025-02-05 12:56 | Outpatient (CLI) | payer MEDICARE, SELFPAY | END 2025-02-05 12:57 | disposition home or self-care (01) | LOC: ANHAUDASC 12:58 | PROVIDERS: PCP Family Medicine; Visit Provider Physician Assistant | DX: H90.3 Sensorineural hearing loss, bilateral (principal) | CPT/HCPCS: 92557; 92567 ==

== ENCOUNTER 2025-03-09 19:51 | Observation (INO) | payer MEDICARE, SELFPAY ==
--- NOTE | ~2025-03-09 | XR_ITS ---
XR elbow RT min 3V 03/09/2025 23:40 Indication: Right elbow pain Procedure: 4 views right elbow Comparison: 11/24/2014 Findings: Moderate soft tissue swelling surrounding the elbow. No foreign body. No fracture or traumatic malalignment. No significant joint effusion. Impression: 1: Moderate diffuse soft tissue swelling surrounding the elbow. No fracture. Reviewed, dictated and finalized at location B. IC POLICY ASSOCIATE Impression: 1: Moderate diffuse soft tissue swelling surrounding the elbow. No fracture.
--- NOTE | ~2025-03-09 | CT_ITS ---
EXAM/PROCEDURE: CT forearm RT wo con HISTORY: Forearm swelling, fall COMPARISON: None available. TECHNIQUE: CT exam of the right forearm performed with no contrast. FINDINGS: No evidence of osteomyelitis. Severe soft tissue swelling present in the subcutaneous soft tissues especially along the dorsal aspect of the elbow and forearm. No discretely defined fluid loculation although exam is somewhat limited by noncontrast technique. Probably small joint effusion in the elbow. Vascular compartments appear largely preserved with no gross distortion. IMPRESSION: No evidence of osteomyelitis. Severe soft tissue swelling in the subcutaneous soft tissues. If abscess or early/subtle osteomyelitis is a clinical concern, correlation with contrast enhanced CT, or alternatively MRI may provide additional beneficial information. Reviewed, dictated and finalized at location A. R AND SLICER HAND IMPRESSION: No evidence of osteomyelitis. Severe soft tissue swelling in the subcutaneous s oft tissues. If abscess or early/subtle osteomyelitis is a clinical concern, co rrelation with contrast enhanced CT, or alternatively MRI may provide additiona l beneficial information.
--- NOTE | ~2025-03-09 | CT_ITS ---
CT HEAD NON-CONTRAST CT C-SPINE Clinical History: fall Comparison: None Technique: Unenhanced axial images skull base to vertex. Coronal, sagittal reformats. Axial images thoracic inlet to skull base. Sagittal and coronal reformats. CT images acquired with automatic exposure control for dose reduction DLP: 681 mGy-cm Findings: Head: Chronic white matter microvascular ischemic changes. Sulci, ventricles: Unremarkable. No intracerebral hemorrhage. No evidence acute territorial infarct. No mass effect, midline shift, intra-/extra-axial fluid collection. Bony calvarium intact. Visualized paranasal sinuses: Clear. Mastoid air cells: Clear. C-spine: No acute fracture. Chronic bilateral spondylolysis C7. Grade 1 anterolisthesis C7 on T1. Severe degenerative changes. Multilevel disc disease. Prevertebral soft tissues within normal limits. Visualized lung apices: Emphysema. Visualized thyroid: Unremarkable. No enlarged cervical nodes. IMPRESSION: HEAD: 1. No acute intracranial findings. C-SPINE: 1. No acute fracture. Reviewed, dictated and finalized at location R. AL LINEMAN IMPRESSION: HEAD: 1. No acute intracranial findings. C-SPINE: 1. No acute fracture.
[2025-03-09 19:53] VITALS: BP 160/90; PULSE 97; RESP 16; TEMP 36.4; O2SAT 100
[2025-03-09 22:55] VITALS: PULSE 86; RESP 16; O2SAT 97
[2025-03-09 23:00] VITALS: PULSE 82; RESP 17; O2SAT 97
[2025-03-09 23:17] VITALS: BP 126/73; PULSE 80; RESP 18; O2SAT 97
[2025-03-09 23:18] VITALS: PULSE 80; RESP 18; O2SAT 97
[2025-03-10] VITALS (21 sets, daily range): BP systolic 113–154; BP diastolic 65–83; PULSE 75–99; RESP 10–20; TEMP 36.4–37.4; O2SAT 94–99; BMI 27.0
[2025-03-10 00:17] LABS: Hematocrit 32.7 % (42.0-52.0); Hemoglobin 10.8 g/dL (14.0-18.0); Immature Platelet Fraction Pct 2.0 % (0.9-11.2); Mean Corpuscular HGB Conc 33.0 g/dl (32-36); Mean Corpuscular Hemoglobin 30.1 pg (26-34); Mean Corpuscular Volume 91.1 fl (80-100); Platelet Count Result 98 k/mm3 (150-375); Red Blood Count 3.59 M/mm3 (4.6-6.20); White Blood Count 11.8 K/mm3 (4.5-10.0)
[2025-03-10 00:30] LABS: Anion Gap 8 mmol/L (4-12); Blood Urea Nitrogen 20 mg/dL (9-20); CRP 6.0 mg/dL (<1.0); Calcium 8.7 mg/dL (8.4-10.2); Carbon Dioxide 24 mmol/L (22-30); Chloride 105 mmol/L (98-107); Estimated CRCL calculation 71 ml/min; Estimated Glomerular Filt Rate > 60; Glucose 110 mg/dL (65-110); Potassium 3.9 mmol/L (3.4-5.0); Sodium 137 mmol/L (137-145); Uric Acid 5.3 mg/dL (3.5-8.5)
[2025-03-10 01:04] LABS: Band Neutrophils Percent 4 % (0-6); Lymphocytes Absolute Manual 1.53 K/mm3 (1.1-4.5); Lymphocytes Percent Manual 13.0 % (18-44); Metamyelocytes Percent 1 %; Monocytes Absolute Manual 1.18 K/mm3 (0.1-0.90); Monocytes Percent Manual 10 % (3-9); Neutrophils Absolute Manual 8.73 K/mm3 (1.3-6.7); Neutrophils Percent Manual 70 % (46-73); Promyelocytes Percent 2 %; Total Cells Counted 100
[2025-03-10 01:05] LABS: Anisocytosis 1+; Schistocytes None Seen; Smudge Cells PRESENT
--- NOTE | 2025-03-10 01:21 | ED_ITS ---
HPI - Extremity Injury (Upper) General Chief Complaint: Extremity Injury, Upper <Mavis Ward PA-C - Last Filed: 03/10/25 02:27> Stated Complaint: right elbow pain <BREE Gee Last Filed: 03/10/25 02:27> Time Seen by Provider: 03/09/25 23:33 <Mavis Ward PA-C - Last Filed: 03/10/25 02:27> Source: patient <BREE Gee Last Filed: 03/10/25 02:27> Mode of arrival: ambulatory <BREE Gee Last Filed: 03/10/25 02:27> Limitations: no limitations <BREE Gee Last Filed: 03/10/25 02:27> History of Present Illness HPI narrative: This is a 74-year-old male that presents to the emergency department for right elbow/forearm swelling and redness. Ongoing since yesterday. Reports he fell yesterday and hit his elbow. He also hit his head. He did not lose consciousness. Denies fevers, decreased range of motion, numbness. <BREE Gee Last Filed: 03/10/25 02:27> Related Data Home Medications: Home Medications ?Medication ?Instructions ?Recorded ?Confirmed ?Last Taken ?Type multivitamin with minerals-folic 1 tablet PO DAILY 03/10/25 03/09/25 History acid 0.4 mg tablet lubiprostone 24 mcg capsule 24 mcg PO BID 03/14/2203/2403/09/25 History naloxone 4 mg/actuation nasal 1 spray intranasal Q2-3M PRN 03/01/23 03/10/25 Unknown History spray (Narcan) opioid overdose morphine 15 mg tablet,extended 15 mg PO Q12H 11/25/24 03/10/25 03/09/25 History release amlodipine 5 mg tablet (Norvasc) 5 mg PO HS 03/10/25 1 05/10/24 03/09/25 History <Mavis Ward PA-C - Last Filed: 03/10/25 02:27> Allergies/Adverse Reactions: Allergies Allergy/AdvReac Type Severity Reaction Status Date / Time Penicillins Allergy Unknown Rash Verified 03/10/25 03:06 <Mavis Ward PA-C - Last Filed: 03/10/25 02:27> Review of Systems 2 Review of Systems: All systems reviewed & are unremarkable except as noted in HPI and below <Mavis Ward PA-C - Last Filed: 03/10/25 02:27> [facility] Past Medical History Medical History: Medical History Spinal cord stimulator status Chronic, continuous use of opioids oxy 5 mg for 10 years Cellulitis of right elbow HLD (hyperlipidemia) Chronic low back pain COPD (chronic obstructive pulmonary disease) HTN (hypertension) <BREE Gee Last Filed: 03/10/25 02:27> Surgical History Surgical History: Surgical History History of tooth extraction History of left knee replacement 2014 H/O elbow surgery 2011 Left elbow 2016 Right elbow H/O left knee surgery 2000 & 2008 S/P laminectomy 2018 & 2020 <Mavis Ward PA-C - Last Filed: 03/10/25 02:27> Family History Family History: Family History Father Family history of pancreatic cancer <BREE Gee Last Filed: 03/10/25 02:27> Social History Social History: Social History Smoking packs per day: 2 Smoking cigarettes per day: 40.0 Years smoked: 30 Smoking pack-years: 60.00 Smoking status: Former smoker Tobacco type: cigarettes Second hand tobacco smoke exposure: Yes Smoking end date: 10/29/03 Alcohol intake: never Substance use: never Substance use type: does not use Do You Feel Safe in your Home?: Yes Lack of Transportation: No Lack of Food: Never True Current Housing: I Have Housing Concerned About Future Housing: No Difficulty Paying Gas/Electric Bills: No Difficulty Paying for Meds: No Currently Unemployed: No Education: High School Diploma/GED Difficulty w/ Childcare or Family Care: No Living arrangements: with family Additional living arrangements comments: Occupation/Education: retired Gender identity (if verbalized by the patient): Male Sexual Orientation (if Verbalized by the Patient): Straight or Heterosexual Spiritual care concerns: No <Mavis Ward PA-C - Last Filed: 03/10/25 02:27> Exam 2 Narrative: GENERAL: Well-appearing, well-nourished, and in no acute distress. HEAD: Normocephalic, atraumatic. EYES: PERRLA and EOMI. ENT: Nares clear, no rhinorrhea or epistaxis. Mucous membranes moist. Oropharynx without tonsillar hypertrophy exudate or other lesions. Bilateral TMs pearly keith non-bulging NECK: Supple. No adenopathy or masses. CHEST: Clear to auscultation. No respiratory distress. No wheezes rales or rhonchi HEART: Regular rate and rhythm. No murmur heard. Normal peripheral pulses. EXTREMITIES: Normal range of motion. Moderate edema with overlying redness to the posterior elbow in into the forearm. Normal radial pulse. Normal sensation SKIN: Warm, dry, no rash. NEURO: No focal deficits. Alert and oriented x3. CN II-XII grossly intact PSYCH: Normal mood and affect <Mavis Ward PA-C - Last Filed: 03/10/25 02:27> Course [facility]ANDER/PA Physician Supervision This visit was performed by both a physician and an Advanced Practice Provider. I performed all aspects of the Medical Decision Making as documented. <Geoff Rowell DO - Last Filed: 03/10/25 05:44> Vital Signs Vital signs: Vital Signs Temperature 97.6 F 03/09/25 19:53 Pulse Rate 97 03/09/25 19:53 Respiratory Rate 16 03/09/25 19:53 Blood Pressure 160/90 H 03/09/25 19:53 Pulse Oximetry 100 03/09/25 19:53 Oxygen Delivery Room Air 03/09/25 19:53 Temperature 98.5 F 03/10/25 03:08 Pulse Rate 95 03/10/25 03:08 Respiratory Rate 16 03/10/25 03:08 Blood Pressure 154/73 H 03/10/25 03:08 Pulse Oximetry 98 03/10/25 03:08 Oxygen Delivery Room Air 03/10/25 02:58 <Mavis Ward PA-C - Last Filed: 03/10/25 02:27> Vital Signs Temperature 97.6 F 03/09/25 19:53 Pulse Rate 97 03/09/25 19:53 Respiratory Rate 16 03/09/25 19:53 Blood Pressure 160/90 H 03/09/25 19:53 Pulse Oximetry 100 03/09/25 19:53 Oxygen Delivery Room Air 03/09/25 19:53 Temperature 98.5 F 03/10/25 03:08 Pulse Rate 95 03/10/25 03:08 Respiratory Rate 16 03/10/25 03:08 Blood Pressure 154/73 H 03/10/25 03:08 Pulse Oximetry 98 03/10/25 03:08 Oxygen Delivery Room Air 03/10/25 02:58 <Geoff Rowell DO - Last Filed: 03/10/25 05:44> MDM - Extremity Injury (Upper) MDM Narrative Medical decision making narrative: Patient presents emergency department for redness and swelling of the right forearm. He is afebrile and nontoxic appearing. CBC with leukocytosis. Inflammatory markers are elevated. Right elbow x-ray shows soft tissue swelling. No acute osseous abnormalities. Patient also endorsing head injury. CT brain and cervical spine without acute findings. Blood cultures obtained, patient started on IV antibiotics. Will be admitted to hospitalist service for further management <Mavis Ward PA-C - Last Filed: 03/10/25 02:27> Patient presents emergency department for redness and swelling of the right forearm. He is afebrile and nontoxic appearing. CBC with leukocytosis. Inflammatory markers are elevated. Right elbow x-ray shows soft tissue swelling. No acute osseous abnormalities. Patient also endorsing head injury. CT brain and cervical spine without acute findings. Blood cultures obtained, patient started on IV antibiotics. Will be admitted to hospitalist service for further management This visit was performed by both a physician and an Advanced Practice Provider. I performed all aspects of the Medical Decision Making as documented. <Geoff Rowell DO - Last Filed: 03/10/25 05:44> Differential Diagnosis Differential diagnosis: Likely other (Bursitis, cellulitis) <Mavis Ward PA-C - Last Filed: 03/10/25 02:27> Lab Data Attestation: I reviewed the patient's lab results. <Mavis Ward PA-C - Last Filed: 03/10/25 02:27> Result diagrams: 03/10/25 00:07 03/10/25 00:07 <Mavis Ward PA-C - Last Filed: 03/10/25 02:27> Labs: Lab Results 03/10/25 Range/Units 00:07 WBC 11.8 H (4.5-10.0) K/mm3 RBC 3.59 L (4.6-6.20) M/mm3 Hgb 10.8 L (14.0-18.0) g/dL Hct 32.7 L (42.0-52.0) % MCV 91.1 (80-100) fl MCH 30.1 (26-34) pg MCHC 33.0 (32-36) g/dl RDW 14.2 (11.5-14.5) % Plt Count 98 L (150-375) k/mm3 MPV 9.7 (7.4-10.4) fl Immature Gran % (Auto) Not Reportable Neut % (Auto) Not Reportable Lymph % (Auto) Not Reportable Glascock % (Auto) Not Reportable Eos % (Auto) Not Reportable Baso % (Auto) Not Reportable Lymph # (Auto) Not Reportable [place]ock # (Auto) Not Reportable Eos # (Auto) Not Reportable Baso # (Auto) Not Reportable Abs Immat Gran (auto) Not Reportable Absolute Neuts (auto) Not Reportable Absolute Nucleated RBC Not Reportable Total Counted 100 Neutrophils % (Manual) 70 (46-73) % Band Neutrophils % 4 (0-6) % Lymphocytes % (Manual) 13.0 L (18-44) % Monocytes % (Manual) 10 H (3-9) % Metamyelocytes % 1 % Promyelocytes % (Man) 2 % Nucleated RBC % Not Reportable Abs Neuts (Manual) 8.73 H (1.3-6.7) K/mm3 Abs Lymphs (Manual) 1.53 (1.1-4.5) K/mm3 Abs Monocytes (Manual) 1.18 H (0.1-0.90) K/mm3 Atypical Lymphocytes Present Smudge Cells Present Platelet Estimate Decreased (Adequate) % Immature Plt Fraction 2.0 (0.9-11.2) % Anisocytosis 1+ Schistocytes None seen ESR 82 H (0-20) mm/hr Sodium 137 (137-145) mmol/L Potassium 3.9 (3.4-5.0) mmol/L Chloride 105 (98-107) mmol/L Carbon Dioxide 24 (22-30) mmol/L Anion Gap 8 (4-12) mmol/L BUN 20 (9-20) mg/dL Creatinine 0.78 (0.7-1.3) mg/dL Estim Creat Clear Calc 71 ml/min Estimated GFR > 60 (59 - ) Glucose 110 (65-110) mg/dL Uric Acid 5.3 (3.5-8.5) mg/dL Calcium 8.7 (8.4-10.2) mg/dL C-Reactive Protein 6.0 H (<1.0) mg/dL <Mavis Ward PA-C - Last Filed: 03/10/25 02:27> Lab Results 03/10/25 Range/Units 00:07 WBC 11.8 H (4.5-10.0) K/mm3 RBC 3.59 L (4.6-6.20) M/mm3 Hgb 10.8 L (14.0-18.0) g/dL Hct 32.7 L (42.0-52.0) % MCV 91.1 (80-100) fl MCH 30.1 (26-34) pg MCHC 33.0 (32-36) g/dl RDW 14.2 (11.5-14.5) % Plt Count 98 L (150-375) k/mm3 MPV 9.7 (7.4-10.4) fl Immature Gran % (Auto) Not Reportable Neut % (Auto) Not Reportable Lymph % (Auto) Not Reportable Glascock % (Auto) Not Reportable Eos % (Auto) Not Reportable Baso % (Auto) Not Reportable Lymph # (Auto) Not Reportable [place]ock # (Auto) Not Reportable Eos # (Auto) Not Reportable Baso # (Auto) Not Reportable Abs Immat Gran (auto) Not Reportable Absolute Neuts (auto) Not Reportable Absolute Nucleated RBC Not Reportable Total Counted 100 Neutrophils % (Manual) 70 (46-73) % Band Neutrophils % 4 (0-6) % Lymphocytes % (Manual) 13.0 L (18-44) % Monocytes % (Manual) 10 H (3-9) % Metamyelocytes % 1 % Promyelocytes % (Man) 2 % Nucleated RBC % Not Reportable Abs Neuts (Manual) 8.73 H (1.3-6.7) K/mm3 Abs Lymphs (Manual) 1.53 (1.1-4.5) K/mm3 Abs Monocytes (Manual) 1.18 H (0.1-0.90) K/mm3 Atypical Lymphocytes Present Smudge Cells Present Platelet Estimate Decreased (Adequate) % Immature Plt Fraction 2.0 (0.9-11.2) % Anisocytosis 1+ Schistocytes None seen ESR 82 H (0-20) mm/hr Sodium 137 (137-145) mmol/L Potassium 3.9 (3.4-5.0) mmol/L Chloride 105 (98-107) mmol/L Carbon Dioxide 24 (22-30) mmol/L Anion Gap 8 (4-12) mmol/L BUN 20 (9-20) mg/dL Creatinine 0.78 (0.7-1.3) mg/dL Estim Creat Clear Calc 71 ml/min Estimated GFR > 60 (59 - ) Glucose 110 (65-110) mg/dL Uric Acid 5.3 (3.5-8.5) mg/dL Calcium 8.7 (8.4-10.2) mg/dL C-Reactive Protein 6.0 H (<1.0) mg/dL <Geoff Rowell DO - Last Filed: 03/10/25 05:44> Imaging Data My impression: Right elbow x-ray: Soft tissue swelling. No acute osseous abnormality < BREE Gee Last Filed: 03/10/25 02:27> Radiologist's impression: CT brain: No acute intracranial abnormality CT cervical spine: No acute C-spine findings <BREE Gee Last Filed: 03/10/25 02:27> Critical Care Time Critical Care Time Critical Care Time: No <BREE Gee Last Filed: 03/10/25 02:27> Discharge Plan Discharge Clinical Impression: Cellulitis Qualifiers: Site of cellulitis: extremity Site of cellulitis of extremity: upper extremity Laterality: right Qualified Code(s): L03.113 - Cellulitis of right upper limb <Mavis Ward PA-C - Last Filed: 03/10/25 02:27> Patient Disposition: Still a Patient <Mavis Ward PA-C - Last Filed: 03/10/25 02:27> Condition: Stable <Mavis Ward PA-C - Last Filed: 03/10/25 02:27>
[2025-03-10] MEDS: VANCOMYCIN 1,500 MG/NS 500 ML 1,500 MG/500 ML BAG 250 MG IVPB (02:34)
--- NOTE | 2025-03-10 02:38 | WPCEDHO ---
ED Hand Off Checklist All vitals saved: yes IV Site documented:yes All med administrations documented: yes Triage Note Triage Note PT TO ED FOR EVAL OF R ELBOW PAIN 03/09/25 22:55 S/P TRIP AND FALL YESTERDAY. STATES HIT BACK OF HEAD BUT DENIES ANY INJURY. NOTED SWELLING AND REDNESS TO R ELBOW. REPORTS 99.9FEVER AT HOME. HX OF CELLULITIS Allergies Penicillins Allergy (Unknown, Verified 03/05/25 08:51) Rash Family History (Last Reviewed 03/05/25 @ 08:52 by Emily Doll MA) Father Family history of pancreatic cancer Active Medications including assessments/comments Vancomycin HCl (Vancomycin 1,500 Mg/Ns 500 Ml) 1,500 mg in 500 mls @ 250 mls/hr IVPB Q18H JAY Last Admin: 03/10/25 02:34 Dose: 250 mls/hr Documented By: ACS Infusion/Titration Document 03/10/25 02:34 ACS (Rec: 03/10/25 02:34 ACS [id number]) Intake IV Site Peripheral Access Left Forearm Container Volume 500 Waste Amount 0 Dosing Infusion Rate 250 Increase/Decrease Started Elapsed Time Elapsed Time ( 0m minutes) Interventions/Assessments IV / Saline Lock, Insert Start: 03/09/25 23:43 Freq: ONCE Status: Active Protocol: Document 03/10/25 01:57 ADY (Rec: 03/10/25 01:57 ADY [id number]) IV Assessment Peripheral Access Left Forearm IV Catheter Access Initiated IV Insertion Date 03/10/25 IV Insertion Time 01:57 Catheter Gauge 20 IV Insertion 2 Attempts IV Site Assessment WNL IV Care and WNL Maintenance Last Vital Signs Temperature 97.6 F 03/09/25 19:53 Pulse Rate 91 03/10/25 02:30 Respiratory Rate 17 03/10/25 02:30 Pulse Oximetry 98 03/10/25 02:30 Blood Pressure 122/79 03/10/25 02:30 Blood Pressure Mean 93 03/10/25 02:30 Blood Pressure Position Sitting 03/09/25 19:53 Oxygen Delivery Room Air 03/09/25 22:55 Weight 81 kg 03/09/25 22:55 Last Result - Abnormals Only WBC 11.8 K/mm3 (4.5-10.0) H 03/10/25 00:07 RBC 3.59 M/mm3 (4.6-6.20) L 03/10/25 00:07 Hgb 10.8 g/dL (14.0-18.0) L 03/10/25 00:07 Hct 32.7 % (42.0-52.0) L 03/10/25 00:07 Plt Count 98 k/mm3 (150-375) L 03/10/25 00:07 Lymphocytes % (Manual) 13.0 % (18-44) L 03/10/25 00:07 Monocytes % (Manual) 10 % (3-9) H 03/10/25 00:07 Abs Neuts (Manual) 8.73 K/mm3 (1.3-6.7) H 03/10/25 00:07 Abs Monocytes (Manual) 1.18 K/mm3 (0.1-0.90) H 03/10/25 00:07 ESR 82 mm/hr (0-20) H 03/10/25 00:07 C-Reactive Protein 6.0 mg/dL (<1.0) H 03/10/25 00:07 Most Recent Suicide Severity Rating Suicide Severity Rating NO RISK INDICATED 03/09/25 22:55
--- NOTE | 2025-03-10 02:57 | ADMGEN ---
This patient, Jarad Herring, was admitted to 2 Medical Room 257-01. Patient/family oriented to hospital policies and general routines including ID bracelet, bed and alarms, visiting hours, pain management, procedures, bathroom and other care routines, personal items, smoking policy, room service/diet, and visiting hours. Information on how to activate the Rapid Response Team has been discussed. Patient/Family are encouraged to report perceived risks to care and to ask questions if they do not understand what they are told or what they should do.
[2025-03-10] MEDS: ACETAMINOPHEN 325 MG TABLET 650 MG PO (05:57)
--- NOTE | 2025-03-10 07:25 | PM.IMHP ---
H&P: HPI History of Present Illness Date/Time: 03/10/25 07:25 Chief Complaint: Upper extremity swelling Narrative: Jarad Herring is a 74-year-old male with a past medical history HTN, COPD, HLD, lumbar spondylosis who presents to the hospital for right elbow pain and swelling after a fall that occured 1 day prior to arrival. Review of Systems Review of Systems: All systems reviewed & are unremarkable except as noted in HPI and below PMFSH Past Medical History Medical History Spinal cord stimulator status Chronic, continuous use of opioids oxy 5 mg for 10 years Cellulitis of right elbow HLD (hyperlipidemia) Chronic low back pain COPD (chronic obstructive pulmonary disease) HTN (hypertension) Surgical History Surgical History History of tooth extraction History of left knee replacement 2014 H/O elbow surgery 2011 Left elbow 2016 Right elbow H/O left knee surgery 2000 & 2007 S/P laminectomy 2018 & 2020 Family History Family History Father Family history of pancreatic cancer Social History Social History Smoking packs per day: 2 Smoking cigarettes per day: 40.0 Years smoked: 30 Smoking pack-years: 60.00 Smoking status: Former smoker Tobacco type: cigarettes Second hand tobacco smoke exposure: Yes Smoking end date: 10/29/03 Alcohol intake: never Substance use: never Substance use type: does not use Do You Feel Safe in your Home?: Yes Lack of Transportation: No Lack of Food: Never True Current Housing: I Have Housing Concerned About Future Housing: No Difficulty Paying Gas/Electric Bills: No Difficulty Paying for Meds: No Currently Unemployed: No Education: High School Diploma/GED Difficulty w/ Childcare or Family Care: No Living arrangements: with family Additional living arrangements comments: Occupation/Education: retired Gender identity (if verbalized by the patient): Male Sexual Orientation (if Verbalized by the Patient): Straight or Heterosexual Spiritual care concerns: No Meds Home Medications and Allergies Home Medications ?Medication ?Instructions ?Recorded ?Confirmed ?Type albuterol sulfate 90 mcg/actuation 1 - 2 inh inhalation Q4-6H PRN 06/09/21 03/10/25 Rx aerosol inhaler (Ventolin HFA) shortness of breath or wheezing #8.5 grams multivitamin with minerals-folic 1 tablet PO DAILY 01/16/22 03/10/25 History acid 0.4 mg tablet lubiprostone 24 mcg capsule 24 mcg PO BID 03/14/22 03/10/25 History naloxone 4 mg/actuation nasal 1 spray intranasal Q2-3M PRN 03/01/23 03/10/25 History spray (Narcan) opioid overdose diclofenac sodium 75 mg 75 mg PO BID #180 tabs 07/21/24 03/10/25 Rx tablet,delayed release budesonide 160 mcg-glycopyr 9 2 inh inhalation BID #32.1 grams 11/10/24 03/10/25 Rx mcg-formot 4.8 mcg/actuation HFA inhaler (Breztri Aerosphere) morphine 15 mg tablet,extended 15 mg PO Q12H 11/25/24 03/10/25 History release atorvastatin 10 mg tablet 10 mg PO DAILY #90 tabs 01/12/25 03/10/25 Rx amlodipine 5 mg tablet (Norvasc) 5 mg PO HS 03/10/25 03/10/25 History Allergies Allergy/AdvReac Type Severity Reaction Status Date / Time Penicillins Allergy Unknown Rash Verified 03/10/25 03:06 Vital Signs Vital Signs - 24 hr 03/09/25 19:53 03/09/25 22:55 03/09/25 23:00 Temperature 97.6 F Pulse Rate 97 86 82 Respiratory Rate 16 16 17 Blood Pressure 160/90 H Pulse Oximetry 100 97 97 Oxygen Delivery Room Air Room Air 03/09/25 23:17 03/09/25 23:18 03/10/25 00:14 Temperature Pulse Rate 80 80 75 Respiratory Rate 18 18 17 Blood Pressure 126/73 113/65 Pulse Oximetry 97 97 94 Oxygen Delivery 03/10/25 00:14 03/10/25 00:15 03/10/25 00:17 Temperature Pulse Rate 75 75 78 Respiratory Rate 17 19 16 Blood Pressure 113/65 117/70 Pulse Oximetry 95 95 96 Oxygen Delivery 03/10/25 00:30 03/10/25 00:32 03/10/25 00:45 Temperature Pulse Rate 79 79 81 Respiratory Rate 16 15 12 Blood Pressure 120/73 Pulse Oximetry 97 97 99 Oxygen Delivery 03/10/25 00:47 03/10/25 01:00 03/10/25 01:02 Temperature Pulse Rate 79 Respiratory Rate 13 10 L 12 Blood Pressure 121/72 125/77 Pulse Oximetry 98 98 99 Oxygen Delivery 03/10/25 01:15 03/10/25 01:17 03/10/25 02:07 Temperature Pulse Rate 87 Respiratory Rate 20 17 20 Blood Pressure 126/83 Pulse Oximetry 98 99 Oxygen Delivery 03/10/25 02:17 03/10/25 02:30 03/10/25 02:48 Temperature Pulse Rate 87 91 91 Respiratory Rate 20 17 17 Blood Pressure 122/79 122/79 Pulse Oximetry 98 98 Oxygen Delivery 03/10/25 02:58 03/10/25 03:08 03/10/25 04:00 Temperature 98.5 F 99.4 F Pulse Rate 91 95 99 Respiratory Rate 17 16 16 Blood Pressure 154/73 H 154/83 H Pulse Oximetry 98 98 96 Oxygen Delivery Room Air Exam Narrative: Gen - well appearing male in no acute respiratory distress who is nontoxic-appearing lying semi recumbent in bed HEENT - normocephalic. Atraumatic. Pupils equal round and reactive. Extraocular motions intact. Sclera clear and anicteric. Nares patent. Oropharynx was clear. No oral lesions. Moist mucous membranes. Tongue was midline. Palate le symmetrically. No facial asymmetry. Neck - neck was supple. No dominant adenopathy, thyromegaly or masses. 2+ carotid upstrokes without bruits. Chest - lungs are clear to auscultation bilaterally. No wheezes or crackles. CV - heart was regular rate and rhythm. S1-S2. No murmurs gallops or rubs. Abd - abdomen was soft. Nontender. Nondistended. Positive bowel sounds. No organomegaly or masses. Ext - no clubbing, cyanosis or edema. 2+ DP pulses bilaterally. Neuro - patient is alert and oriented x4. Strength is 5/5 in both upper and lower extremities. Cranial nerves 2-12 are intact. Speech is clear. Psych - normal mood and affect. Patient is pleasant and cooperative. Skin - warm and dry. No rashes noted. H&P: Results Labs Labs: Short CBC 03/10/25 Range/Units 00:07 WBC 11.8 H (4.5-10.0) K/mm3 Hgb 10.8 L (14.0-18.0) g/dL Hct 32.7 L (42.0-52.0) % Plt Count 98 L (150-375) k/mm3 [id number] 03/10/25 00:07 Sodium 137 Potassium 3.9 Chloride 105 Carbon Dioxide 24 BUN 20 Creatinine 0.78 Glucose 110 Calcium 8.7
[2025-03-10 08:01] LABS: Hematocrit 33.2 % (42.0-52.0); Hemoglobin 10.9 g/dL (14.0-18.0); Immature Granulocyte Percent A 0.5 % (0-0.5); Immature Platelet Fraction Pct 1.9 % (0.9-11.2); Lymphocytes Absolute Auto 1.33 K/mm3 (0.9-3.2); Mean Corpuscular HGB Conc 32.8 g/dl (32-36); Mean Corpuscular Hemoglobin 30.0 pg (26-34); Mean Corpuscular Volume 91.5 fl (80-100); Nucleated Red Blood Cells Absolute Auto 0.000 K/mm3 (0.0-0.012); Nucleated Red Blood Cells Perc 0.0 % (0.0-0.2); Platelet Count Result 99 k/mm3 (150-375); Red Blood Count 3.63 M/mm3 (4.6-6.20); White Blood Count 11.5 K/mm3 (4.5-10.0)
[2025-03-10] MEDS: MORPHINE SULFATE (*CRX) 15 MG TABCR PO (08:11)
[2025-03-10] MEDS: DICLOFENAC SOD 75 MG TABLET.EC PO ×2 (08:11→17:03)
[2025-03-10 08:35] LABS: Alanine Aminotransferase 50 U/L (6-50); Albumin Level 4.0 g/dL (3.5-5.1); Alkaline Phosphatase 84 U/L (38-126); Anion Gap 6 mmol/L (4-12); Aspartate Amino Transferase 54 U/L (17-59); Bilirubin,Total 1.2 mg/dL (0.2-1.3); Blood Urea Nitrogen 16 mg/dL (9-20); Calcium 8.6 mg/dL (8.4-10.2); Carbon Dioxide 24 mmol/L (22-30); Chloride 107 mmol/L (98-107); Estimated CRCL calculation 84 ml/min; Estimated Glomerular Filt Rate > 60; Glucose 105 mg/dL (65-110); Potassium 4.1 mmol/L (3.4-5.0); Sodium 137 mmol/L (137-145); Total Protein 7.2 g/dL (6.3-8.2)
--- NOTE | 2025-03-10 17:28 | P.SS_ITS ---
Same Day Admit/Disch: HPI History of Present Illness Chief complaint: Cellulitis Narrative: Jarad Herring is a 74 year old male with a past medical history of HTN, COPD, HLD, and chronic opioid use who presents to the hospital after a fall that occurred the day before admission. Patient reports a mechanical fall that occurred that caused him to fall onto his fight forearm. He also states that he hit the back of his head but did not lose consciousness. He denies any pain to his head at this point. He did report pain to the right forearm/elbow with some swelling, redness and warmth. Also reports a 99.9F fever at home. Upon arrival to ED, he was afebrile and non-toxic appearing. States that the pain was constant but worse with movement, but that it improved throughout the day yesterday. Denies any continued head pain after initial fall. Denies any chest pain, shortness of breath, n/v, dizziness, abd pain, headaches, difficulty with ambulation, numbness/tingling of extremities or memory loss. [facility] Past Medical History Medical History Spinal cord stimulator status Chronic, continuous use of opioids oxy 5 mg for 10 years Cellulitis of right elbow HLD (hyperlipidemia) Chronic low back pain COPD (chronic obstructive pulmonary disease) HTN (hypertension) Surgical History Surgical History History of tooth extraction History of left knee replacement 2014 H/O elbow surgery 2012 Left elbow 2016 Right elbow H/O left knee surgery 2000 & 2007 S/P laminectomy 2018 & 2020 Family History Family History Father Family history of pancreatic cancer Social History Social History Smoking packs per day: 2 Smoking cigarettes per day: 40.0 Years smoked: 30 Smoking pack-years: 60.00 Smoking status: Former smoker Tobacco type: cigarettes Second hand tobacco smoke exposure: Yes Smoking end date: 10/29/03 Alcohol intake: never Substance use: never Substance use type: does not use Do You Feel Safe in your Home?: Yes Lack of Transportation: No Lack of Food: Never True Current Housing: I Have Housing Concerned About Future Housing: No Difficulty Paying Gas/Electric Bills: No Difficulty Paying for Meds: No Currently Unemployed: No Education: High School Diploma/GED Difficulty w/ Childcare or Family Care: No Living arrangements: with family Additional living arrangements comments: Occupation/Education: retired Gender identity (if verbalized by the patient): Male Sexual Orientation (if Verbalized by the Patient): Straight or Heterosexual Spiritual care concerns: No Same Day Admit/Disch: Med Pre-admit Medications Home Medications ?Medication ?Instructions ?Recorded ?Confirmed ?Type albuterol sulfate 90 mcg/actuation 1 - 2 inh inhalatio n Q4-6H PRN 06/09/21 03/10/25 Rx aerosol inhaler (Ventolin HFA) shortness of breath or wheezing #8.5 grams multivitamin with minerals-folic 1 tablet PO DAILY 03/10/25 History acid 0.4 mg tablet lubiprostone 24 mcg capsule 24 mcg PO BID 03/14/2203/24 History naloxone 4 mg/actuation nasal 1 spray intranasal Q2-3M PRN 03/01/23 03/10/25 History spray (Narcan) opioid overdose diclofenac sodium 75 mg 75 mg PO BID #180 tabs 07/2103/10/25 Rx tablet,delayed release budesonide 160 mcg-glycopyr 9 2 inh inhalation BID #32 .1 grams 11/10/24 03/10/25 Rx mcg-formot 4.8 mcg/actuation HFA inhaler (Breztri Aerosphere) morphine 15 mg tablet,extended 15 mg PO Q12H 11/25/24 03/10/25 History release atorvastatin 10 mg tablet 10 mg PO DAILY #90 tabs 12/2903/10/25 Rx amlodipine 5 mg tablet (Norvasc) 5 mg PO HS 03/10/25 1 05/10/24 History clindamycin HCl 300 mg capsule 300 mg PO Q6H 5 days #2 0 caps 03/10/25 Rx (Cleocin HCl) Review of Systems Review of Systems All systems reviewed & are unremarkable except as noted in HPI and below Exam Narrative: Gen - well appearing male in no acute respiratory distress who is nontoxic- appearing lying semi recumbent in bed HEENT - normocephalic. Atraumatic. Pupils equal round and reactive. Extraocular motions intact. Sclera clear and anicteric. Nares patent. Oropharynx was clear. No oral lesions. Moist mucous membranes. Tongue was midline. Palate le symmetrically. No facial asymmetry. Neck - neck was supple. No dominant adenopathy, thyromegaly or masses. 2+ carotid upstrokes without bruits. Chest - lungs are clear to auscultation bilaterally. No wheezes or crackles. CV - heart was regular rate and rhythm. S1-S2. No murmurs gallops or rubs. Abd - abdomen was soft. Nontender. Nondistended. Positive bowel sounds. No organomegaly or masses. Ext - Edema and some erythema to posterior right eblow/forearm. No distinct wound or drainage. No pain on palpation, no limited ROM of right UE at all. no clubbing, cyanosis or edema. 2+ DP pulses bilaterally. Neuro - patient is alert and oriented x4. Strength is 5/5 in both upper and lower extremities. Cranial nerves 2-12 are intact. Speech is clear. Psych - normal mood and affect. Patient is pleasant and cooperative. Skin - warm and dry. No rashes noted. DS: Data Data Completed and Pending Labs on day of discharge: Labs from last 24 hours 03/10/25 03/10/25 07:51 00:07 WBC 11.5 H 11.8 H RBC 3.63 L 3.59 L Hgb 10.9 L 10.8 L Hct 33.2 L 32.7 L MCV 91.5 91.1 MCH 30.0 30.1 MCHC 32.8 33.0 RDW 14.2 14.2 Plt Count 99 L 98 L MPV 9.3 9.7 Immature Gran % (Auto) 0.5 Not Reportable Neut % (Auto) 67.9 Not Reportable Lymph % (Auto) 11.6 L Not Reportable Mcminn % (Auto) 19.8 H Not Reportable Eos % (Auto) 0.1 Not Reportable Baso % (Auto) 0.1 L Not Reportable Lymph # (Auto) 1.33 Not Reportable Mcminn # (Auto) 2.3 H Not Reportable Eos # (Auto) 0.0 Not Reportable Baso # (Auto) 0.0 Not Reportable Abs Immat Gran (auto) 0.06 H Not Reportable Absolute Neuts (auto) 7.8 H Not Reportable Absolute Nucleated RBC 0.000 Not Reportable Total Counted 100 Neutrophils % (Manual) 70 Band Neutrophils % 4 Lymphocytes % (Manual) 13.0 L Monocytes % (Manual) 10 H Metamyelocytes % 1 Promyelocytes % (Man) 2 Nucleated RBC % 0.0 Not Reportable Abs Neuts (Manual) 8.73 H Abs Lymphs (Manual) 1.53 Abs Monocytes (Manual) 1.18 H Atypical Lymphocytes Present Smudge Cells Present Platelet Estimate Decreased % Immature Plt Fraction 1.9 2.0 Anisocytosis 1+ Schistocytes None seen ESR 82 H Sodium 137 137 Potassium 4.1 3.9 Chloride 107 105 Carbon Dioxide 24 24 Anion Gap 6 8 BUN 16 20 Creatinine 0.63 L 0.78 Estim Creat Clear Calc 84 71 Estimated GFR > 60 > 60 Glucose 105 110 Uric Acid 5.3 Calcium 8.6 8.7 Total Bilirubin 1.2 AST 54 ALT 50 Alkaline Phosphatase 84 C-Reactive Protein 6.0 H Total Protein 7.2 Albumin 4.0 DS: Summary Hospital Course Reason for hospitalization: Right elbow/Forearm injury Hospital Course: Jarad Herring is a 74 year old male with a past medical history of HTN, COPD, HLD, and chronic opioid use who presents to the hospital after a fall that occurred the day before admission. Patient reports a mechanical fall that occurred that caused him to fall onto his fight forearm. He also states that he hit the back of his head but did not lose consciousness. He denies any pain to his head at this point. He did report pain to the right forearm/elbow with some swelling, redness and warmth. Also reports a 99.9F fever at home. Upon arrival to ED, he was afebrile and non-toxic appearing. He did have some leukocytosis with a WBC of 11.8 but likely reactive. Inflammatory markers were elevated at time of arrival. Cervical spine CT showed No acute fracture. Head CT showed No acute intracranial findings. Right elbow XR showed moderate diffuse soft tissue swelling surrounding elbow but no fracture. Forearm CT showed No evidence of osteomyelitis. Severe soft tissue swelling in the subcutaneous soft tissues. If abscess or early/subtle osteomyelitis is a clinical concern, correlation with contrast enhanced CT, or alternatively MRI may provide additional beneficial information. Upon my examination, there did not appear to be any distinct open wound, bleeding or drainage. There was diffuse soft tissue swelling of the forearm with taught skin, but minimal erythema and no warmth. At the time of exam, the patient was denying pain, numbness, tingling or difficulty with flexion/extension of elbow, wrist or digits. Low suspicion of compartment syndrome given lack of pain out of proportion, lack of numbness/tingling, lack of limited ROM or dense skin tissue. Patient has been afebrile during hospitalization. Imagining has been reassuring so far. Possible concern for cellulitis and given patients history of skin cellulitis would recommend 5 day course of Clindamycin given penicillin allergy. Blood cultures were drawn and are pending at time of discharge. Given that the blood cultures had not returned, had an in-depth conversation with patient in terms of discharge. Discussed with patient that if the blood cultures comes back they will receive a phone call and will have to come back to the hospital for IV antibiotics. Patient stated understanding and was agreeable with discharge at this time. Pt is otherwise hemodynamically stable for discharge and very much looking forward to discharge at this time. Plan for discharge home. He has been given strict return to ED instructions and to watch out for increased pain, swelling, redness development of numbness/tingling of forearm/digits or worsening fever. He is in agreement. Status at Discharge Functional status at discharge: independent ambulation Overall status at discharge: patient is back to baseline Time Spent with Patient Time attestation: Total time spent providing and/or coordinating discharge services: 25 DS: Admitting Diagnosis Discharge Date 03/10/2025 Admitting Diagnosis Cellulitis DS: Discharge Diagnosis Discharge Diagnosis (1) Cellulitis: Qualifiers: Laterality: right Site of cellulitis: extremity Site of cellulitis of extremity: upper extremity Qualified Code(s): L03.113 - Cellulitis of right upper limb Code(s): L03.90 - Cellulitis, unspecified Status: Acute (2) Forearm injury: Qualifiers: Encounter type: initial encounter Laterality: right Qualified Code(s): S59.911A - Unspecified injury of right forearm, initial encounter Code(s): S59.919A - Unspecified injury of unspecified forearm, initial encounter Status: Acute Discharge Plan Discharge Attending physician on discharge: Jesus Chan Consulting providers: Nimesh Theodore Discharging Clinician: Nimesh Theodore Anticipated Discharge Date/Time: 03/10/25 17:20 Patient Disposition: Home Activity: as tolerated Diet: regular Discharge Instructions: Discharge disposition: Home Take medications as prescribed. You will be prescribed Clindamycin for cellulitis. Take this 4 times daily for 5 days. Monitor blood pressures Take caution while standing, rising, or moving Change positions slowly taking a break between each position change If you standing feel dizzy sit back down and take a break Encouraged to continue with yearly vaccinations Return to the emergency department if you develop sudden shortness of breath, chest pain, nausea, vomiting, upset stomach or intractable diarrhea Return to the emergency department if you develop fever greater than 101.5 Follow-up with the primary care physician within 1-2 weeks Thank you for [facility] for your healthcare needs Precautions and What to Watch For: * Pain:?Watch for pain that is much worse than expected, especially if it gets worse over time or does not improve with pain medication. This is often the earliest and most important warning sign. * Pain with movement:?If moving your fingers or wrist causes severe pain, let your doctor know right away. * Numbness or tingling:?New or worsening numbness, tingling, or pins and needles in your arm, hand, or fingers can be a sign of nerve pressure. * Swelling and tightness:?If your arm feels unusually tight, hard, or swollen, or if you notice shiny skin, call your doctor. * Weakness:?Trouble moving your fingers or hand, or loss of strength, may be a late sign?do not wait for this to happen. When to seek help: * If you develop any of the warning signs above. * If your fingers turn pale, blue, or cold. * If you have trouble moving your fingers or hand. * If your pain suddenly gets much worse. Patient Instructions: Antibiotic Form Patient Language: Bolivian Stand Alone Forms: General Discharge Information Follow-up/Referrals: Niko Lala MD [Primary Care Provider, Family Practice] Discharge Medications: New clindamycin HCl [Cleocin HCl] 300 mg capsule 300 mg PO Q6H 5 Days Qty: 20 0RF Continued lubiprostone 24 mcg capsule 24 mcg PO BID naloxone [Narcan] 4 mg/actuation spray,non-aerosol 1 spray intranasal Q2-3M PRN (Reason: opioid overdose) Rx Instructions: spray 1 dose into ONE nostril; alternate nostrils w each dose until help arrives amlodipine [Norvasc] 5 mg tablet 5 mg PO HS albuterol sulfate [Ventolin HFA] 90 mcg/actuation HFA aerosol inhaler 1 - 2 inh INHALATION Q4-6H PRN (Reason: shortness of breath or wheezing) Qty: 8.5 2RF diclofenac sodium 75 mg tablet,delayed release (DR/EC) 75 mg PO BID Qty: 180 2RF Rx Instructions: Take with food. Breztri Aerosphere 160-9-4.8 mcg/actuation HFA aerosol inhaler 2 inh inhalation BID Qty: 32.1 2RF morphine 15 mg tablet extended release 15 mg PO Q12H atorvastatin 10 mg tablet 10 mg PO DAILY Qty: 90 1RF multivit with min-folic acid 0.4 mg Tablet 1 tablet PO DAILY Date of admission: 03/10/25 01:53 Primary Care Provider: Niko Lala Admitting Provider: Delaney Fofana Attending physician on admission: Delaney Fofana Condition: Stable
== END 2025-03-10 17:55 | disposition home or self-care (01) ==
LOC: ANHED 03-10 02:18 → ANH2MED 03-10 06:37
PROVIDERS: Physician Assistant; Admitting Provider Internal Medicine; Emergency Provider Physician Assistant; PCP Family Medicine; Visit Provider Family Medicine
DX: S59.911A Unspecified injury of right forearm, initial encounter (principal); W19.XXXA Unspecified fall, initial encounter; L03.113 Cellulitis of right upper limb; E78.5 Hyperlipidemia, unspecified; M54.9 Dorsalgia, unspecified; J44.9 Chronic obstructive pulmonary disease, unspecified; I10 Essential (primary) hypertension; Z79.1 Long term (current) use of non-steroidal anti-inflammatories (NSAID); Z79.891 Long term (current) use of opiate analgesic; Z79.52 Long term (current) use of systemic steroids; Z96.652 Presence of left artificial knee joint; Z96.82 Presence of neurostimulator; Z87.891 Personal history of nicotine dependence; Z80.0 Family history of malignant neoplasm of digestive organs
CPT/HCPCS: 36415; 70450; 72125; 73080; 73200; 80048; 80053; 84550; 85025; 85055; 85652; 86140; 96365; 96375; 99285; A9270; G0378; J3373